=== PATIENT | female | born 1955 ===

== ENCOUNTER 2017-06-11 09:51 | Day surgery (SDC) | payer BC, MEDICARE ==
[2017-06-10 09:36] VITALS: BMI 29.9
[2017-06-11] MEDS ORDERED: HYDROmorphone 0.5 mg/0.5 ml ISec IVP PRN (12:14)
[2017-06-11] MEDS ORDERED: Lidocaine 2% Inj (20ml) ONE (12:29)
[2017-06-11] MEDS ORDERED: EPINEPHrine 1 mg/ml (1:1000) Inj ONE (12:29)
[2017-06-11] MEDS ORDERED: Lactated Ringer's 1,000 ML IV ONE (12:48)
[2017-06-11] MEDS ORDERED: Propofol 10 mg/ml Inj (20 ML) ONE (12:58)
[2017-06-11] MEDS ORDERED: Albuterol-Ipratrop 3 mg / 0.5 (3 ml) UD INH STA (13:21)
[2017-06-11] MEDS ORDERED: MethylPREDNISolone 40 mg Vial IVP STA (13:22)
[2017-06-11] MEDS ORDERED: Acetylcysteine 20% Inhal Soln (4ml) INH STA (13:22)
--- NOTE | 2017-06-11 13:27 | PCM.SURG1 ---
Surgeon's Initial Post Op Note - Surgeon's Notes Surgeon: Lissette Slate Trimmer: non Pre-Operative Diagnosis: lung fibrosis with breast cancer history Operative Findings: pt is coughing. inflammed bronchial tree. No mass Post-Operative Diagnosis: lung fibrosis Operation Performed: Bronch, BAL,washing and biopsy avoided Specimen/Specimens Removed: BAL, washing brushing Estimated Blood Loss: EBL {In ML}: 1 Date of Surgery/Procedure: 06/11/17 Time of Surgery/Procedure: 13:27
[2017-06-11] MEDS ORDERED: Lactated Ringer's 1,000 ML IV SCH (13:30)
[2017-06-11 15:13] VITALS: O2SAT 94
[2017-06-11 15:30] VITALS: TEMP 98
[2017-06-11 15:33] VITALS: BP 152/62; PULSE 96; RESP 18
--- NOTE | 2017-06-11 19:55 | RAD ---
HISTORY: ptx COMPARISON: 08/21/2016. FINDINGS: LUNGS: There are coarse interstitial markings in both lungs and haziness in both lower lobes. There is also bibasilar airspace disease. PLEURA: No significant pleural effusion identified, no pneumothorax apparent. CARDIOVASCULAR: Normal. OSSEOUS STRUCTURES: No significant abnormalities. VISUALIZED UPPER ABDOMEN: Normal. OTHER FINDINGS: None. IMPRESSION: No radiographic evidence for pneumothorax. Findings are most compatible with interstitial fibrosis. Bibasilar airspace disease could represent atelectasis however superimposed pneumonia cannot be excluded. Follow-up is advised.
--- NOTE | 2017-06-12 08:44 | RAD ---
INTRAOPERATIVE FLUOROSCOPY HISTORY: Bronchoscopy TECHNIQUE/FINDINGS: Fluoroscopic guidance was provided by Radiology department. Please see operative report for full details. Six images were provided. Total fluoroscopy time was 18.8 seconds. IMPRESSION: As above
--- NOTE | 2017-06-22 04:40 | OP ---
PROCEDURE DATE: PROCEDURE: Bronchoscopic evaluation, biopsy possibly. INDICATION: Lung fibrosis, history of breast cancer, suspecting metastatic lesions. CONSENT: Informed consent from the patient. DESCRIPTION OF PROCEDURE: The patient was brought to the same day surgery, and she was taken to the endoscopy suite. The patient was given conscious sedation. Bronchoscopy was introduced through the right nostril. Vocal cord visualized. Trachea and bronchial tree visualized. No intraluminal pathology noted. Both sides lung parenchyma visualized through the bronchoscopy, mostly BAL and brushing was corrected through the right lower lung garcia. The patient was having significant bleeding even with minimal touch. The patient was also having increasing coughing episodes. Biopsy was minimally done. Samples were collected, sent for pathology, microbiology. Clinically, the patient is stable. Oxygen rangel, the patient is stable. She will be monitored in the postanesthesia unit. If the x-ray is negative, the patient will be discharged home. Cyndi Mclaughlin MD
--- NOTE | 2017-06-22 04:41 | HP ---
CHIEF COMPLAINT: Shortness of breath. HISTORY OF PRESENT ILLNESS: This is a 61-year-old female with a history of breast cancer many years ago. The patient treated in the past, now having increasing episodes of coughing and also increasing wheezing. The patient was seen by me as an outpatient for chronic worsening cough. In the past, the patient was seen by multiple pulmonologists. Radiological evidence showing there was a significant lung fibrotic pattern noted. PAST MEDICAL HISTORY: Breast cancer. ALLERGIES: NO KNOWN DRUG ALLERGY. PERSONAL HISTORY: Nonsmoker, nonalcoholic, significant exposure to dust noted while she was working. Denies any major occupational disorder. PHYSICAL EXAMINATION: GENERAL: Clinically stable. LUNGS: Bilateral wheezing and rales noted. CARDIOPULMONARY: Regular heart sound. ABDOMEN: Nontender. EXTREMITIES: No pedal edema. LABORATORY DATA: Chest x-ray; bilateral infiltrative changes, chronic lung fibrotic changes noted. The patient also had a PET scan showing evidence of minimal uptake and also elevated tumor markers noted, suspected secondary in the lungs, so the patient agreed to have the bronchial biopsy. The patient is scheduled to have the branchial biopsy today. We will follow up the patient. After the bronchoscopy, the patient is stable. She will be discharged home. Cyndi Mclaughlin MD
== END 2017-06-11 15:40 | disposition home or self-care (01) ==
LOC: C.SDS 09:51
PROVIDERS: ATTEND Internal Medicine
DX: J84.112 Idiopathic pulmonary fibrosis (principal); C50.919 Malignant neoplasm of unspecified site of unspecified female breast
CPT/HCPCS: 31623; 71010; 87070; 87101; 87116; 87205; 87206; 88104; 88305; 94640; J2270; J2920; J7120

== ENCOUNTER 2017-09-14 12:16 | Observation (INO) | payer BC, MEDICARE ==
[2017-09-14 12:22] VITALS: BMI 29.2
--- NOTE | 2017-09-14 13:30 | C.PDOC ---
History Of Present Illness 62 year old female presents to the ED for evaluation of persistent shortness of breath which began 1 week ago. Patient is s/p discharge from [facility] for pneumonia. Patient has history of pulmonary fibrosis and has been compliant with antibiotics. Patient has been on home O2 4L 24/7. Reports positive dyspnea on exertion. Denies chest pain. Patient is currently asymptomatic "as long as she doesn't have to walk." Patient reports history of CHF, EDEMA. Denies fever. PERSIST SOB X 1 WEEK. S/P DC FROM [facility] FOR PNEUMONIA. HO PULM FIBROSIS. COMPLIANT W ABX. ON HOME O2 4L 24/7. +MITCHELL. NO CP. CURRENTLY ASYMPT " LONG SHE DOESNT HAVE TO WALK". NO HO CHF, EDEMA. NO FEVER EXAM NONTOXIC NARD HEENT NEG LUNGS B/L MID/BASILAR CRACKLES ?CHRONIC CV RRR NO EDEMA REMIANDER NEG Time Seen by Provider: 09/14/17 13:02 Chief Complaint (Nursing): Shortness Of Breath History Per: Patient History/Exam Limitations: no limitations Onset/Duration Of Symptoms: Persistent, Other (1 week) Current Symptoms Are (Timing): Better Exacerbating Factor(s): Exertion Current Respiratory Medications: See Home Med List Associated Symptoms: denies: Fever, Chest Pain Past Medical History Reviewed: Historical Data, Nursing Documentation, Vital Signs Vital Signs: Last Vital Signs Temp 99.1 F 09/14/17 12:35 Pulse 96 H 09/14/17 12:35 Resp 24 09/14/17 13:00 BP 122/69 09/14/17 12:35 Pulse Ox 97 09/14/17 13:55 - Medical History PMH: Arthritis (fingers), Asthma, Bronchitis, COPD, Depression, Osteoporosis, Pneumonia Denies: Parkinson's Disease Surgical History: Appendectomy, Cholecystectomy, Endoscopy Denies: Pacemaker - [facility] Procedures CLOSED ENDOSCOPIC BIOPSY OF LARGE INTESTINE (02/25/07) DPT ADMINISTRATION (11/13/13) ENDO EXCISION/DEST OF LESION OR TISSUE OF STOMACH (02/01/14) ENDOSC POLYPECTOMY OF LG INTEST (02/01/14) ESOPHAGOGASTRODUODENOSCOPY [EGD] W/CLOSED BIOPSY (10/11/14) INJECT/INFUSE NEC (02/28/15) INTRODUCE OF OTH THERAP SUBST INTO RESP TRACT, VIA OPENING (09/06/17) NEBULIZER THERAPY (08/11/13) Family History: States: Unknown Family Hx - Social History Hx Tobacco Use: No Hx Alcohol Use: No Hx Substance Use: No Review Of Systems Constitutional: Negative for: Fever Cardiovascular: Negative for: Chest Pain Respiratory: Positive for: Shortness of Breath, Other (dyspnea on exertion ) Physical Exam - Physical Exam Appears: Non-toxic, Other (no acute respiratory distress ) Head: Atraumatic, Normacephalic Eye(s): bilateral: Normal Inspection Ear(s): Bilateral: Normal Nose: Normal, No Discharge Oral Mucosa: Moist Throat: Normal, No Erythema, No Exudate Neck: Supple Chest: Symmetrical, No Deformity, No Tenderness Cardiovascular: Rhythm Regular, No Murmur Respiratory: Normal Breath Sounds, No Rales, No Rhonchi, No Wheezing Extremity: Normal ROM, Capillary Refill (less than 2 seconds ), No Other (edema ) Neurological/Psych: Oriented x3, Normal Speech, Normal Cognition Gait: Steady ED Course And Treatment - Laboratory Results Result Diagrams: 09/14/17 13:41 09/14/17 13:41 ECG: Interpreted By Me ECG Rhythm: R BBB ECG Interpretation: Normal, No Acute Changes Rate From EC O2 Sat by Pulse Oximetry: 97 (on RA) Pulse Ox Interpretation: Normal - Radiology CXR: Interpreted by Id CXR Interpretation: Yes: No Acute Disease, Other (PULM FIBROSIS) Progress Note: Bloodwork and CXR ordered and reviewed. Progress - Re-Evaluation Re-evaluation Note: 09/14/17 13:02 D/W PMD HO BREAST CA DISTANT. HO LUNG FIBROSIS. NO HO CHF. 09/14/17 14:42 D/W DR MCLAUGHLIN AWARE OF ER FINDINGS WILL ADMIT - Data Reviewed Data Reviewed: Lab, Diagnostic imaging, EKG, Old records Disposition Counseled Patient/Family Regarding: Studies Performed, Diagnosis - Disposition Disposition: HOSPITALIZED Disposition Time: 14:43 Condition: STABLE Forms: [facility] (Austrian) - POA Present On Arrival: None - Clinical Impression Clinical Impression: Pulmonary fibrosis, Dyspnea - Scribe Statement The provider has reviewed the documentation as recorded by the Scribe (Marti Awad) Provider Attestation: All medical record entries made by the Scribe were at my direction and personally dictated by me. I have reviewed the chart and agree that the record accurately reflects my personal performance of the history, physical exam, medical decision making, and the department course for this patient. I have also personally directed, reviewed, and agree with the discharge instructions and disposition. Decision To Admit - Pt Status Changed To: Hospital Disposition Of: Observation - . Bed Request Type: Regular Admitting Physician: Cyndi Mclaughlin Patient Diagnosis: Pulmonary fibrosis, Dyspnea
[2017-09-14 13:52] LABS: BASO % 0.2 % (0.0-2.0); EOS # 0.1 K/uL (0.0-0.7); EOS % 0.8 % (0.0-4.0); LYMPH # 1.2 K/uL (1.0-4.3); LYMPH % 8.8 % (20.0-40.0); MEAN CELL VOLUME 84.7 fL (81.0-99.0); MEAN CORPUSCULAR HEMOGLOBIN 27.9 pg (27.0-31.0); MEAN PLATELET VOLUME 7.3 fL (7.2-11.7); MONO # 1.2 K/uL (0.0-0.8); MONO % 9.1 % (0.0-10.0); NEUT # 10.9 K/uL (1.8-7.0); NEUT % 81.1 % (50.0-75.0); PLATELET COUNT 279 K/uL (130-400); RED CELL DISTRIBUTION WIDTH 15.1 % (11.5-14.5); WHITE BLOOD COUNT 13.5 K/uL (4.8-10.8)
[2017-09-14 14:04] LABS: BLOOD UREA NITROGEN 14 mg/dL (7-17); CALCIUM 8.2 mg/dl (8.6-10.4); GFR AFRICAN-AMERICAN > 60; GFR NON-AFRICAN AMERICAN > 60
[2017-09-14 14:12] LABS: B-TYPE NATRIURETIC PEPTIDE 266 pg/mL (0-900)
[2017-09-14 14:24] LABS: ANISOCYTOSIS SLIGHT; LYMPHOCYTE 7 % (20-40); MONOCYTE 12 % (0-10); NEUTROPHIL 81 % (50-75); PLATELET ESTIMATE NORMAL (NORMAL); TOTAL CELLS COUNTED 100
--- NOTE | 2017-09-14 15:51 | RAD ---
HISTORY: SOB HO PULM FIBROSIS S/P RECENT PNEUMONIA COMPARISON: 06/11/2017 chest x-ray and CT chest without contrast 11/25/2015 TECHNIQUE: Chest PA and lateral FINDINGS: LUNGS: Shallow lung volumes -as before. . Prominent inferolateral interstitial lung markings and left infrahilar coalescence compatible with CT referenced bronchiectasis. Abnormal interstitial lung markings are chronic finding in this patient surgical clips project over the left mid and lower thorax (prior CT shows these as extrathoracic in bordering the asymmetrical left pectoralis muscles ) and left upper abdomen PLEURA: No significant pleural effusion identified. No pneumothorax apparent. CARDIOVASCULAR: Grossly normal OSSEOUS STRUCTURES: Prominent thoracic spondylosis VISUALIZED UPPER ABDOMEN: Normal. OTHER FINDINGS: None. IMPRESSION: Shallow lung volumes, and coarse inferolateral chronically prominent interstitial lung markings -findings compatible with chronic interstitial lung disease. Pulmonary fibrosis not excluded. Current left infrahilar lung appearance compatible with prior CT suggestion of left infrahilar bronchiectasis here
[2017-09-14] MEDS ORDERED: Albuterol-Ipratrop 3 mg / 0.5 (3 ml) UD ONE (17:42)
[2017-09-14] MEDS ORDERED: MethylPREDNISolone 40 mg Vial IVP ONE (17:45)
--- NOTE | 2017-09-14 18:35 | CP.PCM.HP ---
Past Patient History - Infectious Disease Hx of Infectious Diseases: None - Tetanus Immunizations Tetanus Immunization: Unknown - Past Medical History & Family History Past Medical History?: Yes - Past Social History Smoking Status: Never Smoked - CARDIAC Hx Pacemaker: No - PULMONARY Hx Asthma: Yes Hx Bronchitis: Yes Hx Chronic Obstructive Pulmonary Disease (COPD): Yes Hx Pneumonia: Yes - NEUROLOGICAL Hx Parkinson's Disease: No - HEENT Hx HEENT Problems: Yes Hx Cataracts: Yes (BILAT IOL) Hx Deafness: Yes (BILATERAL EARS DECREASED HEARING) - HEMATOLOGICAL/ONCOLOGICAL Hx Blood Disorders: Yes Hx Blood Transfusions: Yes - MUSCULOSKELETAL/RHEUMATOLOGICAL Hx Arthritis: Yes (fingers) Hx Osteoporosis: Yes - GASTROINTESTINAL Hx Gastrointestinal Disorders: Yes Hx Gastroesophageal Reflux: Yes - PSYCHIATRIC Hx Depression: Yes Hx Substance Use: No - SURGICAL HISTORY Hx Appendectomy: Yes Hx Cholecystectomy: Yes - ANESTHESIA Hx Anesthesia Reactions: No Meds Allergies/Adverse Reactions: Allergies Allergy/AdvReac Type Severity Reaction Status Date / Time No Known Allergies Allergy Verified 09/14/17 12:21 Results - Vital Signs Recent Vital Signs: Last Vital Signs Temp 99.1 F 09/14/17 12:35 Pulse 96 H 09/14/17 12:35 Resp 24 09/14/17 13:00 BP 122/69 09/14/17 12:35 Pulse Ox 97 09/14/17 14:43 - Labs Result Diagrams: 09/14/17 13:41 09/14/17 13:41 Labs: Laboratory Results - last 24 hr 09/14/17 09/14/17 13:41 13:41 WBC 13.5 H RBC 5.00 Hgb 14.0 Hct 42.4 MCV 84.7 MCH 27.9 MCHC 33.0 RDW 15.1 H Plt Count 279 MPV 7.3 Neut % (Auto) 81.1 H Lymph % (Auto) 8.8 L [place] % (Auto) 9.1 Eos % (Auto) 0.8 Baso % (Auto) 0.2 Neut # 10.9 H Lymph # 1.2 [place] # 1.2 H Eos # 0.1 Baso # 0.0 Neutrophils % (Manual) 81 H Lymphocytes % (Manual) 7 L Monocytes % (Manual) 12 H Platelet Estimate Normal Anisocytosis (manual) Slight Sodium 132 Potassium 4.0 Chloride 93 L Carbon Dioxide 32 H Anion Gap 11 BUN 14 Creatinine 0.6 L Est GFR ( Amer) > 60 Est GFR (Non-Af Amer) > 60 Random Glucose 85 Calcium 8.2 L NT-Pro-B Natriuret Pep 266
[2017-09-14] MEDS ORDERED: MethylPREDNISolone 40 mg Vial ONE (18:44)
[2017-09-14] MEDS: Acetylcysteine 20% Inhal Soln (4ml) INH SCH (19:31)
[2017-09-14] MEDS: Azithromycin 500 MG in Sodium Chloride 0.9% 250 ML IVPB SCH (19:31)
[2017-09-14 20:33] VITALS: RESP 20
[2017-09-14] MEDS: Promethazine/Cod 6.25mg-10mg/5ml Syr UD PO SCH (22:05)
[2017-09-14] MEDS: MethylPREDNISolone 40 mg Vial IVP SCH (22:07)
[2017-09-15] MEDS: Albuterol-Ipratrop 3 mg / 0.5 (3 ml) UD INH SCH ×4 (01:20→20:27)
[2017-09-15] MEDS: Acetylcysteine 20% Inhal Soln (4ml) INH SCH ×4 (01:20→20:27)
[2017-09-15] MEDS: Promethazine/Cod 6.25mg-10mg/5ml Syr UD PO SCH ×6 (05:01→20:00)
[2017-09-15] MEDS: MethylPREDNISolone 40 mg Vial IVP SCH ×3 (05:03→22:05)
[2017-09-15] MEDS: Enoxaparin 40 mg Syringe SC SCH (10:13)
[2017-09-15] MEDS: LIPASE/PROTEASE/AMYLASE 4,200 U ECC PO SCH ×3 (10:14→17:35)
[2017-09-15] MEDS: Pantoprazole 40 mg EC Tab PO SCH (12:46)
--- NOTE | 2017-09-15 15:01 | CARD ---
APPROVED REPORT EKG Measurement Heart [id number] <Conclusion> Normal sinus rhythm Right bundle branch block Abnormal ECG
[2017-09-15] MEDS: Azithromycin 500 MG in Sodium Chloride 0.9% 250 ML IVPB SCH (19:00)
--- NOTE | 2017-09-15 19:42 | CP.PCM.PN ---
Subjective - Date & Time of Evaluation Date of Evaluation: 09/15/17 Time of Evaluation: 19:40 - Subjective Subjective: pt feels good less cough eating well less distress vitals stable no chest pain rales noted pt with h/o breast cancer 30yrs ago HTn lung fibrosis with radiation fibrosis continue steroids and nebs regular diet Objective - Vital Signs/Intake and Output Vital Signs (last 24 hours): Temp Pulse Resp BP Pulse Ox 98 F 82 20 112/64 98 09/15/17 15:00 09/15/17 15:00 09/15/17 15:00 09/15/17 15:00 09/15/17 15:00 Intake and Output: 09/15/17 09/16/17 18:59 06:59 Intake Total 240 Balance 240 - Medications Medications: Current Medications Acetylcysteine (Acetylcysteine 20%) 4 ml INH Q6H [facility] Last Admin: 09/15/17 13:38 Dose: Not Given Albuterol/Ipratropium (Duoneb 3 Mg/0.5 Mg (3 Ml) Ud) 3 ml INH RQ6 [facility] Last Admin: 09/15/17 13:38 Dose: 3 ml Alprazolam (Xanax) 0.25 mg PO HS PRN PRN Reason: Anxiety Stop: 09/21/17 17:27 Last Admin: 09/14/17 22:07 Dose: 0.25 mg Enoxaparin Sodium (Lovenox) 40 mg SC DAILY [facility] Last Admin: 09/15/17 10:13 Dose: 40 mg Azithromycin 500 mg/ Sodium (Chloride) 250 mls @ 167 mls/hr IVPB Q24H [facility] Last Admin: 09/14/17 19:31 Dose: 167 mls/hr Methylprednisolone (Solu-Medrol) 40 mg IVP Q8 [facility] Last Admin: 09/15/17 14:25 Dose: 40 mg Montelukast Sodium (Singulair) 10 mg PO HS [facility] Last Admin: 09/14/17 22:07 Dose: 10 mg Pantoprazole Sodium (Protonix Ec Tab) 40 mg PO DAILY [facility] Last Admin: 09/15/17 12:46 Dose: 40 mg Pneumococcal Polyvalent Vaccine (Pneumovax 23 Vaccine) 0.5 ml IM .ONCE ONE Stop: 09/17/17 10:01 Promethazine HCl/Codeine (Phenergan/Codeine Oral Syrup) 5 ml PO Q4 [facility] Last Admin: 09/15/17 16:35 Dose: 5 ml - Labs Labs: 09/14/17 13:41 09/14/17 13:41
[2017-09-16] MEDS: Promethazine/Cod 6.25mg-10mg/5ml Syr UD PO SCH ×5 (00:35→16:35)
[2017-09-16] MEDS: Acetylcysteine 20% Inhal Soln (4ml) INH SCH ×3 (01:03→07:29)
[2017-09-16] MEDS: Albuterol-Ipratrop 3 mg / 0.5 (3 ml) UD INH SCH ×2 (01:05→07:29)
[2017-09-16] MEDS: LIPASE/PROTEASE/AMYLASE 4,200 U ECC PO SCH ×3 (08:22→16:35)
[2017-09-16] MEDS: Pantoprazole 40 mg EC Tab PO SCH (10:55)
[2017-09-16] MEDS: Enoxaparin 40 mg Syringe SC SCH (10:55)
[2017-09-16] MEDS: MethylPREDNISolone 40 mg Vial IVP SCH (10:55)
--- NOTE | 2017-09-16 13:10 | CP.PCM.PN ---
Subjective - Date & Time of Evaluation Date of Evaluation: 09/16/17 Time of Evaluation: 13:04 - Subjective Subjective: PT SEEN AND EXAMINED TODAY, RESPIRATION EASY AND UNLABORED. NAD Objective - Vital Signs/Intake and Output Vital Signs (last 24 hours): Temp Pulse Resp BP Pulse Ox 97.7 F 84 20 110/73 98 09/16/17 08:02 09/16/17 08:02 09/16/17 08:02 09/16/17 08:02 09/16/17 08:02 Intake and Output: 09/16/17 09/16/17 06:59 18:59 Intake Total 890 Balance 890 - Medications Medications: Current Medications Acetylcysteine (Acetylcysteine 20%) 4 ml INH Q6H [facility] Last Admin: 09/16/17 07:29 Dose: Not Given Albuterol/Ipratropium (Duoneb 3 Mg/0.5 Mg (3 Ml) Ud) 3 ml INH RQ6 [facility] Last Admin: 09/16/17 07:29 Dose: Not Given Alprazolam (Xanax) 0.25 mg PO HS PRN PRN Reason: Anxiety Stop: 09/21/17 17:27 Last Admin: 09/14/17 22:07 Dose: 0.25 mg Enoxaparin Sodium (Lovenox) 40 mg SC DAILY [facility] Last Admin: 09/16/17 10:55 Dose: 40 mg Azithromycin 500 mg/ Sodium (Chloride) 250 mls @ 167 mls/hr IVPB Q24H [facility] Last Admin: 09/15/17 19:00 Dose: 167 mls/hr Methylprednisolone (Solu-Medrol) 40 mg IVP Q12 [facility] Last Admin: 09/16/17 10:55 Dose: 40 mg Montelukast Sodium (Singulair) 10 mg PO HS [facility] Last Admin: 09/15/17 22:05 Dose: 10 mg Pantoprazole Sodium (Protonix Ec Tab) 40 mg PO DAILY [facility] Last Admin: 09/16/17 10:55 Dose: 40 mg Pneumococcal Polyvalent Vaccine (Pneumovax 23 Vaccine) 0.5 ml IM .ONCE ONE Stop: 09/17/17 10:01 Promethazine HCl/Codeine (Phenergan/Codeine Oral Syrup) 5 ml PO Q4 [facility] Last Admin: 09/16/17 12:00 Dose: 5 ml - Labs Labs: 09/14/17 13:41 09/14/17 13:41 Assessment and Plan - Assessment and Plan (Free Text) Plan: 62 Y/O FEMALE WITH OMHX PULMONARY FIBROSIS (COMPLIANT WITH HER ABX) ADMITTED FOR DYSPNEA UPON EXERTION, RECENTLY DISCHARGE FROM [place] FOR PNEUMONIA CXRAY- NO ACUTE FINDINGS, PUL. FIBROSIS PT DENIES ANY CHEST PAIN, PALPITATION, SOB AT PRESENT, NAD. CLEARED FOR DISCHARGE TODAY BY DR. CÁRDENAS, CONTINUE HOME MEDS, PREDNISONE 20 MG PO DIALY X5 D, 10 MG PO X5 D, CONTINUE DOXY PRESCRIBED BY PMD HOME PT AND [facility], ROLLING WALKER ARRANGED SAFE FOR OUTPT F/U
[2017-09-16 15:59] VITALS: BP 124/71; PULSE 81; TEMP 98.3; O2SAT 97
--- NOTE | 2017-09-16 18:50 | CP.PCM.DIS ---
Provider - Provider Date of Admission: 09/14/17 14:43 Attending physician: Cyndi Mclaughlin MD Hospital Course - Lab Results Lab Results: Most Recent Lab Values WBC 13.5 K/uL (4.8-10.8) H 09/14/17 13:41 RBC 5.00 Mil/uL (3.80-5.20) 09/14/17 13:41 Hgb 14.0 g/dL (11.0-16.0) 09/14/17 13:41 Hct 42.4 % (34.0-47.0) 09/14/17 13:41 MCV 84.7 fL (81.0-99.0) 09/14/17 13:41 MCH 27.9 pg (27.0-31.0) 09/14/17 13:41 MCHC 33.0 g/dL (33.0-37.0) 09/14/17 13:41 RDW 15.1 % (11.5-14.5) H 09/14/17 13:41 Plt Count 279 K/uL (130-400) 09/14/17 13:41 MPV 7.3 fL (7.2-11.7) 09/14/17 13:41 Neut % (Auto) 81.1 % (50.0-75.0) H 09/14/17 13:41 Lymph % (Auto) 8.8 % (20.0-40.0) L 09/14/17 13:41 [place] % (Auto) 9.1 % (0.0-10.0) 09/14/17 13:41 Eos % (Auto) 0.8 % (0.0-4.0) 09/14/17 13:41 Baso % (Auto) 0.2 % (0.0-2.0) 09/14/17 13:41 Neut # 10.9 K/uL (1.8-7.0) H 09/14/17 13:41 Lymph # 1.2 K/uL (1.0-4.3) 09/14/17 13:41 [place] # 1.2 K/uL (0.0-0.8) H 09/14/17 13:41 Eos # 0.1 K/uL (0.0-0.7) 09/14/17 13:41 Baso # 0.0 K/uL (0.0-0.2) 09/14/17 13:41 Neutrophils % (Manual) 81 % (50-75) H 09/14/17 13:41 Lymphocytes % (Manual) 7 % (20-40) L 09/14/17 13:41 Monocytes % (Manual) 12 % (0-10) H 09/14/17 13:41 Platelet Estimate Normal (NORMAL) 09/14/17 13:41 Anisocytosis (manual) Slight 09/14/17 13:41 Sodium 132 mmol/L (132-148) 09/14/17 13:41 Potassium 4.0 mmol/L (3.6-5.2) 09/14/17 13:41 Chloride 93 mmol/L (98-107) L 09/14/17 13:41 Carbon Dioxide 32 mmol/L (22-30) H 09/14/17 13:41 Anion Gap 11 (10-20) 09/14/17 13:41 BUN 14 mg/dL (7-17) 09/14/17 13:41 Creatinine 0.6 mg/dL (0.7-1.2) L 09/14/17 13:41 Est GFR ( Amer) > 60 09/14/17 13:41 Est GFR (Non-Af Amer) > 60 09/14/17 13:41 Random Glucose 85 mg/dL (65-105) 09/14/17 13:41 Calcium 8.2 mg/dl (8.6-10.4) L 09/14/17 13:41 NT-Pro-B Natriuret Pep 266 pg/mL (0-900) 09/14/17 13:41 Discharge Plan - Discharge Medications Prescriptions: Prednisone [Deltasone] 20 mg PO DAILY 10 Days tablet - Follow Up Plan Condition: STABLE Disposition: HOME/ ROUTINE Instructions: Prednisone (By mouth), Pulmonary Fibrosis (DC), Dyspnea (GEN) Additional Instructions: continue home meds, Prednisone 20 mg PO daily x5 days, Prednisone 10 mg PO daily x5 days, continue Prednisone 5 mg PO daily that you have at home prescribed by your PMD. f/u with Dr. Almaguer in the office in 2-3 days, we have made an arrangement for Home PT and visiting nurse, rolling walker and wheelchair for you. return to ER for any worsening s/s. Referrals: Cyndi Mclaughlin MD [Staff Provider] -
[2017-09-17] MEDS ORDERED: Influenza Vaccine 60 mcg/0.5 mL SYR (4YR UP) IM ONE (10:00)
[2017-09-17] MEDS ORDERED: Pneumococcal 23-Valent Vaccine IM ONE (10:00)
== END 2017-09-16 19:30 | disposition home or self-care (01) ==
LOC: C.ER 12:16 → C.9E 14:43 → C.3T 17:52
PROVIDERS: ADMIT Internal Medicine; ATTEND Internal Medicine
DX: J84.10 Pulmonary fibrosis, unspecified (principal); J44.9 Chronic obstructive pulmonary disease, unspecified; I10 Essential (primary) hypertension; H91.93 Unspecified hearing loss, bilateral; K21.9 Gastro-esophageal reflux disease without esophagitis; M81.0 Age-related osteoporosis without current pathological fracture; Z85.3 Personal history of malignant neoplasm of breast; Z87.01 Personal history of pneumonia (recurrent); Z90.49 Acquired absence of other specified parts of digestive tract; Z99.81 Dependence on supplemental oxygen
CPT/HCPCS: 71046; 80048; 83880; 85025; 93005; 94640; 96374; 97116; 97162; 99285; G0378; G8978; G8979; J0456; J1650; J2920

== ENCOUNTER 2017-10-25 11:35 | Inpatient (IN) | payer BC, MEDICARE ==
[2017-10-25 11:35] VITALS: BMI 30.5
[2017-10-25] MEDS ORDERED: Albuterol-Ipratrop 3 mg / 0.5 (3 ml) UD IH STA (12:14)
[2017-10-25] MEDS ORDERED: Albuterol-Ipratrop 3 mg / 0.5 (3 ml) UD ONE (12:38)
[2017-10-25 12:41] LABS: BASO # 0.1 K/uL (0.0-0.2); EOS # 0.6 K/uL (0.0-0.7); HEMOGLOBIN 12.9 g/dL (11.0-16.0); LYMPH # 3.2 K/uL (1.0-4.3); MEAN CELL VOLUME 85.1 fL (81.0-99.0); MEAN CORPUSCULAR HEMOGLOBIN 29.1 pg (27.0-31.0); MEAN CORPUSCULAR HGB CONC 34.2 g/dL (33.0-37.0); MEAN PLATELET VOLUME 7.2 fL (7.2-11.7); MONO # 0.7 K/uL (0.0-0.8); MONO % 7.3 % (0.0-10.0); NEUT # 5.5 K/uL (1.8-7.0); NEUT % 53.7 % (50.0-75.0); RBC 4.42 Mil/uL (3.80-5.20); RED CELL DISTRIBUTION WIDTH 14.9 % (11.5-14.5); WHITE BLOOD COUNT 10.2 K/uL (4.8-10.8)
--- NOTE | 2017-10-25 12:48 | C.PDOC ---
History Of Present Illness 62yo female, with a history of pulmonary fibrosis, sent to ER by Dr. Mclaughlin due to complaints of shortness of breath. Patient has had worsening shortness of breath for the past week and is on O2 at home. She has no other medical complaints. Chief Complaint (Nursing): Shortness Of Breath History Per: Patient History/Exam Limitations: no limitations Onset/Duration Of Symptoms: Days Current Symptoms Are (Timing): Still Present Past Medical History Reviewed: Historical Data, Nursing Documentation, Vital Signs Vital Signs: Last Vital Signs Temp 98 F 10/25/17 11:51 Pulse 99 H 10/25/17 14:30 Resp 30 H 10/25/17 14:30 BP 133/65 10/25/17 14:30 Pulse Ox 97 10/25/17 14:30 - Medical History PMH: Arthritis, Asthma, Bronchitis, CHF, COPD (bronchiectasis; pulmo fibrosis), Depression, Gall Bladder Disease (choleycstectomy), Osteoporosis, Pneumonia Denies: Parkinson's Disease, Chronic Kidney Disease Surgical History: Appendectomy, Cholecystectomy, Endoscopy Denies: Pacemaker - [facility] Procedures CLOSED ENDOSCOPIC BIOPSY OF LARGE INTESTINE (02/25/07) DPT ADMINISTRATION (11/13/13) ENDO EXCISION/DEST OF LESION OR TISSUE OF STOMACH (02/01/14) ENDOSC POLYPECTOMY OF LG INTEST (02/01/14) ESOPHAGOGASTRODUODENOSCOPY [EGD] W/CLOSED BIOPSY (10/11/14) INJECT/INFUSE NEC (02/28/15) INTRODUCE OF OTH THERAP SUBST INTO RESP TRACT, VIA OPENING (09/06/17) NEBULIZER THERAPY (08/11/13) Family History: States: Unknown Family Hx - Social History Hx Tobacco Use: No Hx Alcohol Use: No Hx Substance Use: No Review Of Systems Except As Marked, All Systems Reviewed And Found Negative. Respiratory: Positive for: Shortness of Breath Physical Exam - Physical Exam Appears: Non-toxic Skin: Normal Color Head: Normacephalic Eye(s): bilateral: Normal Inspection Oral Mucosa: Moist Neck: Supple Cardiovascular: Rhythm Regular Respiratory: Wheezing, Other (patient making huffing sounds in ER) Gastrointestinal/Abdominal: Normal Exam, Soft, No Tenderness Extremity: Normal ROM, No Pedal Edema Neurological/Psych: Oriented x3, Normal Speech ED Course And Treatment - Laboratory Results Result Diagrams: 10/25/17 12:33 10/25/17 12:33 O2 Sat by Pulse Oximetry: 90 (on 3L O2) - Radiology CXR: Read By Radiologist Critical Care Time - Critical Care Note Total Time (in mins): 35 Documented critical care: time excludes all time spent performing seperately billable procedures. Medical Decision Making Medical Decision Making: Impression: Shortness of breath x 1 week Plan: -- CXR -- Duoneb 3ml INH -- Prednisone 125 mg IVP -- BIPAP CXR Report: Accession No. : [id number] Patient Name / ID : CHERYL ROGERS / [id number] Exam Date : 10/25/2017 12:25:17 ( Approved ) Study Comment : Sex / Age : F / 62Y Creator : Yvrose Brizuela MD Dictator : Yvrose Brizuela MD [employer] Manager : Supervisor [employer] : Yvrose Brizuela MD Approver2 : Report Date : 10/25/2017 13:27:04 My Comment : HISTORY: SOB COMPARISON: Chest x-ray performed 09/14/17 TECHNIQUE: Chest, one view. FINDINGS: Examination limited by habitus and hypoinflation. LUNGS: Moderate diffuse interstitial prominence may reflect infection or edema, possibly superimposed on chronic interstitial changes. Bibasilar atelectasis/ infiltrates. Please note that chest x-ray has limited sensitivity for the detection of pulmonary masses. PLEURA: Possible tiny bilateral pleural effusions. No definite pneumothorax . CARDIOVASCULAR: Heart size appears top normal. OSSEOUS STRUCTURES: Degenerative changes. VISUALIZED UPPER ABDOMEN: Unremarkable. OTHER FINDINGS: None. IMPRESSION: Moderate diffuse interstitial prominence may reflect infection or edema, possibly superimposed on chronic interstitial changes. Pulmonary fibrosis not excluded. Bibasilar atelectasis/infiltrates. Possible tiny bilateral pleural effusions. Case discussed with Dr. Mclaughlin, patient to be admitted to Telemetry. Disposition - Disposition Disposition: HOSPITALIZED Disposition Time: 14:06 Condition: FAIR Forms: [facility] (Citizen Of [place]) - Clinical Impression Clinical Impression: Dyspnea, Pulmonary fibrosis, Hypoxia - PA / ELECTROMECHANICAL EQUIPMENT TESTER / Resident Statement MD/DO has reviewed & agrees with the documentation as recorded. - Scribe Statement The provider has reviewed the documentation as recorded by the Scribe (Kathryn Gonzalez) Provider Attestation: All medical record entries made by the Scribe were at my direction and personally dictated by me. I have reviewed the chart and agree that the record accurately reflects my personal performance of the history, physical exam, medical decision making, and the department course for this patient. I have also personally directed, reviewed, and agree with the discharge instructions and disposition. Decision To Admit - Pt Status Changed To: Hospital Disposition Of: Observation - . Bed Request Type: Telemetry Admitting Physician: Cyndi Mclaughlin Patient Diagnosis: Dyspnea, Pulmonary fibrosis, Hypoxia
[2017-10-25 12:54] LABS: INR 1.1; PROTHROMBIN TIME 12.2 SECONDS (9.7-12.2)
[2017-10-25 12:57] LABS: ALB/GLOB RATIO 0.8 (1.0-2.1); ALBUMIN 3.6 g/dL (3.5-5.0); ALT/SGPT 21 U/L (9-52); AST/SGOT 34 U/L (14-36); BLOOD UREA NITROGEN 6 mg/dL (7-17); CALCIUM 9.4 mg/dl (8.6-10.4); GFR AFRICAN-AMERICAN > 60; GFR NON-AFRICAN AMERICAN > 60
[2017-10-25 13:06] LABS: B-TYPE NATRIURETIC PEPTIDE 345 pg/mL (0-900)
--- NOTE | 2017-10-25 13:28 | RAD ---
HISTORY: SOB COMPARISON: Chest x-ray performed 09/14/17 TECHNIQUE: Chest, one view. FINDINGS: Examination limited by habitus and hypoinflation. LUNGS: Moderate diffuse interstitial prominence may reflect infection or edema, possibly superimposed on chronic interstitial changes. Bibasilar atelectasis/infiltrates. Please note that chest x-ray has limited sensitivity for the detection of pulmonary masses. PLEURA: Possible tiny bilateral pleural effusions. No definite pneumothorax . CARDIOVASCULAR: Heart size appears top normal. OSSEOUS STRUCTURES: Degenerative changes. VISUALIZED UPPER ABDOMEN: Unremarkable. OTHER FINDINGS: None. IMPRESSION: Moderate diffuse interstitial prominence may reflect infection or edema, possibly superimposed on chronic interstitial changes. Pulmonary fibrosis not excluded. Bibasilar atelectasis/infiltrates. Possible tiny bilateral pleural effusions.
--- NOTE | 2017-10-25 16:13 | CP.PCM.HP ---
History of Present Illness - History of Present Illness History of Present Illness: chief complaint: Shortness of breath History present illness: 62-year-old female with history of breast cancer, status post mastectomy in 1985 , and the radiation to the left side and the being followed up by oncologist regularly. 8 months ago. PET/CT was evaluated and nonspecific. Patient is currently complaining of increasing cough symptoms for almost 5 years , gradually getting worse. Mostly, the cough is dry, occasional wheezing noted. Cough is on and off. In the last a few months, at least to 3 months the patient is going to the emergency room more often. Patient is getting increasingly SOB, and also she started using the oxygen more often than before. Currently patient is using 3 L at home. But in spite of that her oxygen saturation is on the low side. Patient also went to see transplant center at the [facility], is scheduled to have a multiple workup. But given the history of breast cancer, records has to be ruled out. I also spoke to the oncologist to. Recent PET scan in August 2017 reviewed Improvement in the uptake noted, but worsening bilateral diffuse infiltrative changes, fibrotic changes noted. Since one month oxygenation is worsening, increasing cough noted, tachypnea noted. Weight as noted. Patient is also feeling somewhat bad, not improving The cough is getting worse, especially with his strong odor, also changing temperature whether, and also soco and smoky environment. At nighttime cough is also getting worse sometimes. S She has some pain along with the cough especially in the epigastric area. She has a history of recurrent diarrhea in the past, especially after eating meats. Associate with the some abdominal pain. Past medical history: Breast cancer history, and history of asthma Surgical history: , hip replacement, mastectomy 1985, status post irradiation. Family history: Father had a history of bone cancer. Mother with a lung cancer and emphysema. Siblings, many of them. History of dementia in the family. Social history: Denies any alcohol. Secondhand smoking noted. Drinks coffee daily. 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 Current medications: Singular, Ventolin, albuterol, Pulmicort, B12, will be Evista, Review of systems: Patient is currently having no headache, but cough and running nose, and associate with the dryness and wheezing. No sinusitis. Chest pain on and off Denies any GI symptoms. No leg swelling. On examination: HEENT PERRLA, neck supple No thyromegaly was noted and no cervical adenopathy noted Chest bilateral rales volcro-like ronchi noted CVS regular heart sound, no murmur Abdomen soft and no organomegaly Extremities no pedal edema, no leg swelling, pedal pulses are good. 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 Patient's labs reviewed Nonspecific. Elevated WBC secondary to possibly corticosteroid. Assessment and recommendation: 61-year-old female with history of breast cancer, stable. History of radiation. Patient had a significant exposure to organic chemicals in the past. Patient now having worsening cough. Gradually worsening for 5 years, more than. Occupational exposure likely, and got worse, and by possibly radiation. Patient possibly has a worsening lung fibrosis under oxygen dependent. Underlying metastatic lung cannot be ruled out. We will get the tumor markers. We'll get the oncological discussion, from the hospital. We'll continue the BiPAP, oxygen supplementation, a nasal corticosteroid, intravenous on a Medrol. DVT prophylaxis and will follow the patient Present on Admission - Present on Admission Any Indicators Present on Admission: No History of DVT/PE: No History of Uncontrolled Diabetes: No Urinary Catheter: No Decubitus Ulcer Present: No Past Patient History - Infectious Disease Hx of Infectious Diseases: None - Tetanus Immunizations Tetanus Immunization: Unknown - Past Medical History & Family History Past Medical History?: Yes - Past Social History Smoking Status: Never Smoked - CARDIAC Hx Congestive Heart Failure: Yes Hx Pacemaker: No - PULMONARY Hx Asthma: Yes Hx Bronchitis: Yes Hx Chronic Obstructive Pulmonary Disease (COPD): Yes (bronchiectasis; pulmo fibrosis) Hx Pneumonia: Yes - NEUROLOGICAL Hx Parkinson's Disease: No - HEENT Hx HEENT Problems: Yes Hx Cataracts: Yes (BILAT IOL) Hx Deafness: Yes (BILATERAL EARS DECREASED HEARING) Hx Glaucoma: No - RENAL Hx Chronic Kidney Disease: No - ENDOCRINE/METABOLIC Hx Endocrine Disorders: No - HEMATOLOGICAL/ONCOLOGICAL Hx Blood Disorders: Yes Hx Cancer: Yes (BREAST) - INTEGUMENTARY Hx Dermatological Problems: Yes Other/Comment: spider veins to left inner lateral side of leg. - MUSCULOSKELETAL/RHEUMATOLOGICAL Hx Arthritis: Yes Hx Osteoporosis: Yes - GASTROINTESTINAL Hx Gall Bladder Disease: Yes (choleycstectomy) - GENITOURINARY/GYNECOLOGICAL Hx Genitourinary Disorders: No - PSYCHIATRIC Hx Depression: Yes Hx Substance Use: No - SURGICAL HISTORY Hx Appendectomy: Yes Hx Cholecystectomy: Yes - ANESTHESIA Hx Anesthesia Reactions: No Meds Allergies/Adverse Reactions: Allergies Allergy/AdvReac Type Severity Reaction Status Date / Time No Known Allergies Allergy Verified 10/25/17 11:50 Results - Vital Signs Recent Vital Signs: Last Vital Signs Temp 98 F 10/25/17 11:51 Pulse 99 H 10/25/17 14:30 Resp 30 H 10/25/17 14:30 BP 133/65 10/25/17 14:30 Pulse Ox 90 L 10/25/17 15:06 - Labs Result Diagrams: 10/25/17 12:33 10/25/17 12:33 Labs: Laboratory Results - last 24 hr 10/25/17 10/25/17 10/25/17 12:33 12:33 12:33 WBC 10.2 RBC 4.42 Hgb 12.9 Hct 37.6 MCV 85.1 MCH 29.1 MCHC 34.2 RDW 14.9 H Plt Count 330 MPV 7.2 Neut % (Auto) 53.7 Lymph % (Auto) 32.0 [place] % (Auto) 7.3 Eos % (Auto) 6.0 H Baso % (Auto) 1.0 Neut # (Auto) 5.5 Lymph # (Auto) 3.2 [place] # (Auto) 0.7 Eos # (Auto) 0.6 Baso # (Auto) 0.1 PT 12.2 INR 1.1 APTT 28 Sodium 143 Potassium 3.7 Chloride 98 Carbon Dioxide 38 H Anion Gap 11 BUN 6 L Creatinine 0.6 L Est GFR ( Amer) > 60 Est GFR (Non-Af Amer) > 60 Random Glucose 103 Calcium 9.4 Total Bilirubin 0.3 AST 34 ALT 21 Alkaline Phosphatase 78 Troponin I < 0.0120 NT-Pro-B Natriuret Pep 345 Total Protein 8.2 Albumin 3.6 Globulin 4.6 H Albumin/Globulin Ratio 0.8 L
[2017-10-25] MEDS ORDERED: MethylPREDNISolone 40 mg Vial ONE (18:03)
[2017-10-25] MEDS: LIPASE/PROTEASE/AMYLASE 4,200 U ECC PO SCH (18:49)
[2017-10-25] MEDS: MethylPREDNISolone 40 mg Vial IVP SCH (18:50)
[2017-10-25] MEDS: Promethazine DM 6.25 mg-15 mg/5 ml Syrup PO SCH (18:50)
[2017-10-25] MEDS: Albuterol-Ipratrop 3 mg / 0.5 (3 ml) UD INH SCH (21:11)
[2017-10-25] MEDS: Budesonide 0.5 mg/2 ml Inhal Susp UD INH SCH (21:11)
[2017-10-26] MEDS: Promethazine DM 6.25 mg-15 mg/5 ml Syrup PO SCH ×5 (00:45→23:45)
[2017-10-26] MEDS ORDERED: Albuterol-Ipratrop 3 mg / 0.5 (3 ml) UD ONE (01:43)
[2017-10-26] MEDS: Albuterol-Ipratrop 3 mg / 0.5 (3 ml) UD INH SCH ×3 (01:48→20:50)
[2017-10-26] MEDS: LIPASE/PROTEASE/AMYLASE 4,200 U ECC PO SCH ×3 (10:55→17:17)
[2017-10-26] MEDS: MethylPREDNISolone 40 mg Vial IVP SCH ×3 (10:55→17:18)
[2017-10-26] MEDS: Pantoprazole 40 mg EC Tab PO SCH (10:56)
--- NOTE | 2017-10-26 12:30 | CARD ---
APPROVED REPORT EKG Measurement Heart [id number] <Conclusion> Sinus tachycardia Right bundle branch block Inferior infarct, age undetermined Abnormal ECG
[2017-10-26] MEDS: ESBRIET 267 MG PO SCH (17:18)
--- NOTE | 2017-10-26 21:37 | CP.PCM.PN ---
Subjective - Date & Time of Evaluation Date of Evaluation: 10/26/17 Time of Evaluation: 21:36 - Subjective Subjective: Patient's vital signs somewhat stable. Patient is benefiting from BiPAP. She is less dyspneic, and she is also having less tachycardic and tachypneic with BiPAP. Report that the patient is having increasing symptoms of dizziness shortness of breath and palpitation without BiPAP. Also hypoxia noted. Cough. Chest tightness on and off noted. Families at bedside On examination: Minimal expiratory wheezing and rales and Velcro rales noted regular heart sounds noted Nontender abdomen No pedal edema Assessment and recommendation: 62-year-old female with a history of remote history of breast cancer. Patient is currently having interstitial lung changes. Chronic respiratory failure, currently needing BiPAP. Patient will benefit by having BiPAP. Currently using BiPAP at a setting of 10/5 with 40% FiO2. Patient is a chronic respiratory insufficiency secondary to lung fibrosis. Since good candidate for portable ventilator. Will try to arrange. I also spoke to the transplant team at [facility], patient will need lung biopsy , to rule out any malignancy in the lungs. I spoke with interventional radiologist at the hospital, is willing to do the biopsy. Patient can be transferred to the hospital for treatment. I explained to the patient, patient's family, undoubtedly about the high risk of pneumothorax. Family is understanding. We will follow the patient. We'll try to arrange if possible. Objective - Vital Signs/Intake and Output Vital Signs (last 24 hours): Temp Pulse Resp BP Pulse Ox 98.1 F 58 L 20 172/91 H 97 10/26/17 15:18 10/26/17 20:50 10/26/17 15:18 10/26/17 15:18 10/26/17 16:00 - Medications Medications: Current Medications Albuterol/Ipratropium (Duoneb 3 Mg/0.5 Mg (3 Ml) Ud) 3 ml INH RQ6 [facility] Last Admin: 10/26/17 20:50 Dose: 3 ml Budesonide (Pulmicort Respules) 0.5 mg INH RQ12 [facility] Last Admin: 10/25/17 21:11 Dose: 0.5 mg Famotidine (Pepcid) 20 mg PO DAILY [facility] Last Admin: 10/26/17 10:56 Dose: 20 mg Gabapentin (Neurontin) 300 mg PO BID [facility] Last Admin: 10/26/17 17:18 Dose: 300 mg Heparin Sodium (Porcine) (Heparin) 5,000 units SC Q8 [facility] Last Admin: 10/26/17 14:38 Dose: 5,000 units Home Med (Patient's Own Medication) 3 tab PO TIDCC [facility] Last Admin: 10/26/17 17:18 Dose: 3 tab Methylprednisolone (Solu-Medrol) 20 mg IVP TID [facility] Stop: 10/28/17 18:01 Last Admin: 10/26/17 17:18 Dose: 20 mg Montelukast Sodium (Singulair) 10 mg PO DAILY [facility] Last Admin: 10/26/17 10:56 Dose: 10 mg Pantoprazole Sodium (Protonix Ec Tab) 40 mg PO DAILY [facility] Last Admin: 10/26/17 10:56 Dose: 40 mg Promethazine HCl/Dextromethorphan (Phenergan Dm Syrup) 5 ml PO Q6 [facility] Last Admin: 10/26/17 17:17 Dose: 5 ml Raloxifene HCl (Evista) 60 mg PO DAILY [facility] Last Admin: 10/26/17 10:56 Dose: 60 mg Vitamin B Complex/Folic Acid (Berroca) 1 tab PO DAILY [facility] Last Admin: 10/26/17 10:55 Dose: 1 tab - Labs Labs: 10/25/17 12:33 10/25/17 12:33 PT 12.2 SECONDS (9.7-12.2) 10/25/17 12:33 INR 1.1 10/25/17 12:33 APTT 28 SECONDS (21-34) 10/25/17 12:33
[2017-10-27] MEDS: Albuterol-Ipratrop 3 mg / 0.5 (3 ml) UD INH SCH ×4 (02:31→20:07)
[2017-10-27] MEDS: Promethazine DM 6.25 mg-15 mg/5 ml Syrup PO SCH ×3 (05:54→17:45)
[2017-10-27] MEDS: Budesonide 0.5 mg/2 ml Inhal Susp UD INH SCH ×2 (07:30→20:07)
[2017-10-27] MEDS: ESBRIET 267 MG PO SCH ×3 (08:14→21:32)
[2017-10-27] MEDS: LIPASE/PROTEASE/AMYLASE 4,200 U ECC PO SCH ×3 (09:27→17:43)
[2017-10-27] MEDS: Pantoprazole 40 mg EC Tab PO SCH (09:27)
[2017-10-27] MEDS: MethylPREDNISolone 40 mg Vial IVP SCH ×3 (09:27→17:46)
--- NOTE | 2017-10-27 23:55 | CP.PCM.PN ---
Subjective - Date & Time of Evaluation Date of Evaluation: 10/27/17 Time of Evaluation: 23:53 - Subjective Subjective: Patient is currently sleeping. On BiPAP. Comfortable. Saturation is better. But the patient is off BiPAP, having difficulty in breathing. I spoke to the patient's it has been this morning Vital signs reviewed No neck vein distention noted Bilateral rales noted CVS regular heart sound, no murmur noted Abdomen soft, nontender. 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 Worsening. On BiPAP ventilator. Patient is currently dependent. Having difficulty in taking the weaning off the BiPAP. Patient will benefit to having the respirator, portable ventilator. We'll arrange it, and she can be transferred after that or discharged home after that. Objective - Vital Signs/Intake and Output Vital Signs (last 24 hours): Temp Pulse Resp BP Pulse Ox 98 F 90 30 H 116/73 99 10/27/17 15:41 10/27/17 23:42 10/27/17 17:19 10/27/17 15:41 10/27/17 15:41 - Medications Medications: Current Medications Albuterol/Ipratropium (Duoneb 3 Mg/0.5 Mg (3 Ml) Ud) 3 ml INH RQ6 [facility] Last Admin: 10/27/17 20:07 Dose: 3 ml Budesonide (Pulmicort Respules) 0.5 mg INH RQ12 [facility] Last Admin: 10/27/17 20:07 Dose: 0.5 mg Famotidine (Pepcid) 20 mg PO DAILY [facility] Last Admin: 10/27/17 09:27 Dose: 20 mg Gabapentin (Neurontin) 300 mg PO BID [facility] Last Admin: 10/27/17 17:43 Dose: 300 mg Heparin Sodium (Porcine) (Heparin) 5,000 units SC Q8 [facility] Last Admin: 10/27/17 21:31 Dose: 5,000 units Home Med (Patient's Own Medication) 3 tab PO TIDCC [facility] Last Admin: 10/27/17 21:32 Dose: 3 tab Methylprednisolone (Solu-Medrol) 20 mg IVP TID [facility] Stop: 10/28/17 18:01 Last Admin: 10/27/17 17:46 Dose: 20 mg Montelukast Sodium (Singulair) 10 mg PO DAILY [facility] Last Admin: 10/27/17 09:27 Dose: 10 mg Pantoprazole Sodium (Protonix Ec Tab) 40 mg PO DAILY [facility] Last Admin: 10/27/17 09:27 Dose: 40 mg Promethazine HCl/Dextromethorphan (Phenergan Dm Syrup) 5 ml PO Q6 [facility] Last Admin: 10/27/17 17:45 Dose: 5 ml Raloxifene HCl (Evista) 60 mg PO DAILY [facility] Last Admin: 10/27/17 09:27 Dose: 60 mg Vitamin B Complex/Folic Acid (Berroca) 1 tab PO DAILY [facility] Last Admin: 10/27/17 09:27 Dose: 1 tab - Labs Labs: 10/25/17 12:33 10/25/17 12:33 PT 12.2 SECONDS (9.7-12.2) 10/25/17 12:33 INR 1.1 10/25/17 12:33 APTT 28 SECONDS (21-34) 10/25/17 12:33
[2017-10-28] MEDS: Promethazine DM 6.25 mg-15 mg/5 ml Syrup PO SCH ×5 (01:00→17:36)
[2017-10-28] MEDS: Albuterol-Ipratrop 3 mg / 0.5 (3 ml) UD INH SCH ×4 (01:20→19:20)
[2017-10-28] MEDS: ESBRIET 267 MG PO SCH ×3 (08:05→17:35)
[2017-10-28] MEDS: MethylPREDNISolone 40 mg Vial IVP SCH ×4 (09:31→21:30)
[2017-10-28] MEDS: Pantoprazole 40 mg EC Tab PO SCH (09:32)
[2017-10-28] MEDS: LIPASE/PROTEASE/AMYLASE 4,200 U ECC PO SCH ×3 (09:33→17:36)
[2017-10-28 15:57] LABS: ARTERIAL BLOOD GAS HCO3 29.7 mmol/L (21-28); ARTERIAL BLOOD GAS HEMOGLOBIN 12.7 g/dL (11.7-17.4); ARTERIAL BLOOD GAS O2 SAT 99.8 % (95-98); ARTERIAL BLOOD GAS PCO2 46 mm/Hg (35-45); ARTERIAL BLOOD GAS PH 7.44 (7.35-7.45); ARTERIAL BLOOD GAS PO2 136 mm/Hg (80-100); ARTERIAL BLOOD GAS TCO2 32.6 mmol/L (22-28)
--- NOTE | 2017-10-28 21:12 | CP.PCM.PN ---
Subjective - Date & Time of Evaluation Date of Evaluation: 10/28/17 Time of Evaluation: 21:12 - Subjective Subjective: Patient is currently having increasing cough, mucus production. Thick yellow mucus noted. Shortness of breaths, on BiPAP. Severe tachypnea noted. Patient at bedside. Oxygen saturation is 98%. On examination: Chest decreased air entry bilaterally noted. Velcro-like rales noted. Abdomen soft nontender no pedal edema. 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 Blood gas analysis showing evidence of CO2 retention, patient is having restrictive lung disease secondary to lung fibrosis. Patient is a candidate for Trilogy ventilator. Once is available patient can be discharged home. Meanwhile will start the patient on antibiotic, bronchodilators. Also we'll start the patient on corticosteroid. And will follow-up the patient Objective - Vital Signs/Intake and Output Vital Signs (last 24 hours): Temp Pulse Resp BP Pulse Ox 98.3 F 88 20 116/69 98 10/28/17 16:00 10/28/17 16:00 10/28/17 16:00 10/28/17 16:00 10/28/17 16:00 - Medications Medications: Current Medications Albuterol/Ipratropium (Duoneb 3 Mg/0.5 Mg (3 Ml) Ud) 3 ml INH RQ6 [facility] Last Admin: 10/28/17 19:20 Dose: 3 ml Alprazolam (Xanax) 0.25 mg PO HS PRN PRN Reason: Insomnia Stop: 11/04/17 20:08 Famotidine (Pepcid) 20 mg PO DAILY [facility] Last Admin: 10/28/17 09:32 Dose: 20 mg Gabapentin (Neurontin) 300 mg PO BID [facility] Last Admin: 10/28/17 17:36 Dose: 300 mg Heparin Sodium (Porcine) (Heparin) 5,000 units SC Q8 [facility] Last Admin: 10/28/17 13:14 Dose: 5,000 units Home Med (Patient's Own Medication) 3 tab PO TIDCC [facility] Last Admin: 10/28/17 17:35 Dose: 3 tab Moxifloxacin HCl (Avelox Iv 400mg/250ml Ns) 400 mg in 250 mls @ 167 mls/hr IVPB Q24H [facility] Methylprednisolone (Solu-Medrol) 40 mg IVP Q12 [facility] Montelukast Sodium (Singulair) 10 mg PO DAILY [facility] Last Admin: 10/28/17 09:32 Dose: 10 mg Pantoprazole Sodium (Protonix Ec Tab) 40 mg PO DAILY [facility] Last Admin: 10/28/17 09:32 Dose: 40 mg Promethazine HCl/Dextromethorphan (Phenergan Dm Syrup) 5 ml PO Q6 [facility] Last Admin: 10/28/17 17:36 Dose: 5 ml Raloxifene HCl (Evista) 60 mg PO DAILY [facility] Last Admin: 10/28/17 09:33 Dose: 60 mg Vitamin B Complex/Folic Acid (Berroca) 1 tab PO DAILY [facility] Last Admin: 10/28/17 09:33 Dose: 1 tab - Labs Labs: 10/25/17 12:33 10/25/17 12:33 PT 12.2 SECONDS (9.7-12.2) 10/25/17 12:33 INR 1.1 10/25/17 12:33 APTT 28 SECONDS (21-34) 10/25/17 12:33
[2017-10-28] MEDS: Moxifloxacin IV 400mg/250ml NS 400 MG/250 ML BAG IVPB SCH (21:29)
[2017-10-29] MEDS: Promethazine DM 6.25 mg-15 mg/5 ml Syrup PO SCH ×4 (00:17→18:20)
[2017-10-29] MEDS: Albuterol-Ipratrop 3 mg / 0.5 (3 ml) UD INH SCH ×4 (01:32→19:30)
[2017-10-29] MEDS: ESBRIET 267 MG PO SCH ×3 (08:30→17:50)
[2017-10-29] MEDS: MethylPREDNISolone 40 mg Vial IVP SCH ×2 (09:40→21:41)
[2017-10-29] MEDS: Pantoprazole 40 mg EC Tab PO SCH (09:40)
[2017-10-29] MEDS: LIPASE/PROTEASE/AMYLASE 4,200 U ECC PO SCH ×3 (09:44→18:18)
--- NOTE | 2017-10-29 11:41 | CP.PCM.PN ---
<Malika Love S - Last Filed: 10/29/17 11:55> Subjective - Date & Time of Evaluation Date of Evaluation: 10/29/17 Time of Evaluation: 11:00 - Subjective Subjective: Patient seen and examined at bedside, awake, Alert, ox3, using continuous BIPAP , c/0 sob , cough , and tacypnic upon minimal movement RN reported hypoxia upon removing bipap and paced on 4 liters of oxygen upon eating Objective - Vital Signs/Intake and Output Vital Signs (last 24 hours): Temp Pulse Resp BP Pulse Ox 97.7 F 88 18 146/71 95 10/29/17 07:30 10/29/17 10:00 10/29/17 07:30 10/29/17 07:30 10/29/17 07:30 Intake and Output: 10/29/17 10/29/17 06:59 18:59 Intake Total 120 Output Total 600 Balance -480 - Medications Medications: Current Medications Albuterol/Ipratropium (Duoneb 3 Mg/0.5 Mg (3 Ml) Ud) 3 ml INH RQ6 [facility] Last Admin: 10/29/17 08:19 Dose: 3 ml Alprazolam (Xanax) 0.25 mg PO HS PRN PRN Reason: Insomnia Stop: 11/04/17 20:08 Last Admin: 10/28/17 21:31 Dose: 0.25 mg Famotidine (Pepcid) 20 mg PO DAILY [facility] Last Admin: 10/29/17 09:40 Dose: 20 mg Gabapentin (Neurontin) 300 mg PO BID [facility] Last Admin: 10/29/17 09:39 Dose: 300 mg Heparin Sodium (Porcine) (Heparin) 5,000 units SC Q8 [facility] Last Admin: 10/29/17 05:26 Dose: 5,000 units Home Med (Patient's Own Medication) 3 tab PO TIDCC [facility] Last Admin: 10/29/17 08:30 Dose: 3 tab Moxifloxacin HCl (Avelox Iv 400mg/250ml Ns) 400 mg in 250 mls @ 167 mls/hr IVPB Q24H [facility] Last Admin: 10/28/17 21:29 Dose: 167 mls/hr Methylprednisolone (Solu-Medrol) 40 mg IVP Q12 [facility] Last Admin: 10/29/17 09:40 Dose: 40 mg Montelukast Sodium (Singulair) 10 mg PO DAILY [facility] Last Admin: 10/29/17 09:55 Dose: 10 mg Pantoprazole Sodium (Protonix Ec Tab) 40 mg PO DAILY [facility] Last Admin: 10/29/17 09:40 Dose: 40 mg Promethazine HCl/Dextromethorphan (Phenergan Dm Syrup) 5 ml PO Q6 [facility] Last Admin: 10/29/17 05:26 Dose: 5 ml Raloxifene HCl (Evista) 60 mg PO DAILY [facility] Last Admin: 10/29/17 09:45 Dose: 60 mg Vitamin B Complex/Folic Acid (Berroca) 1 tab PO DAILY [facility] Last Admin: 10/29/17 09:43 Dose: 1 tab - Labs Labs: 10/25/17 12:33 10/25/17 12:33 PT 12.2 SECONDS (9.7-12.2) 10/25/17 12:33 INR 1.1 10/25/17 12:33 APTT 28 SECONDS (21-34) 10/25/17 12:33 - Constitutional Appears: In Acute Distress (moderate ) - Head Exam Head Exam: ATRAUMATIC, NORMAL INSPECTION, NORMOCEPHALIC - ENT Exam ENT Exam: Mucous Membranes Moist - Respiratory Exam Respiratory Exam: Decreased Breath Sounds, Rhonchi, Wheezes, Respiratory Distress (moderate, tachypnic ) - Cardiovascular Exam Cardiovascular Exam: REGULAR RHYTHM, +S1, +S2 - Neurological Exam Neurological Exam: Alert, Awake, Oriented x3 Assessment and Plan - Assessment and Plan (Free Text) Assessment: A/P 62 yr old female with phx of , COPD , on home o2 ,bronchiectasis; pulmo fibrosis, Depression, Osteoporosis, Pneumonia admitted with incr. sob of breath x 1 week/Pulmonary fibrosis, Hypoxia Patient still tachypnic and hypoxic with minimal activity abg done - showing evidence of CO2 retention, Due to patients progressive disease process of chronic respiratory failure from COPD ,(stage 4 ) / pulmonary fibrosis I feel pt need continuous triology is warranted at this time. Bi pap was tried and proved to be ineffective in managing patients condition . Without triology , patient condition will continue to deteriorate, which may lead to medical harm <Cyndi Mclaughlin - Last Filed: 10/29/17 13:46> Objective - Vital Signs/Intake and Output Vital Signs (last 24 hours): Temp Pulse Resp BP Pulse Ox 97.7 F 88 18 146/71 95 10/29/17 07:30 10/29/17 10:00 10/29/17 07:30 10/29/17 07:30 10/29/17 07:30 Intake and Output: 10/29/17 10/29/17 06:59 18:59 Intake Total 120 Output Total 600 Balance -480 - Medications Medications: Current Medications Albuterol/Ipratropium (Duoneb 3 Mg/0.5 Mg (3 Ml) Ud) 3 ml INH RQ6 [facility] Last Admin: 10/29/17 13:13 Dose: 3 ml Alprazolam (Xanax) 0.25 mg PO HS PRN PRN Reason: Insomnia Stop: 11/04/17 20:08 Last Admin: 10/28/17 21:31 Dose: 0.25 mg Famotidine (Pepcid) 20 mg PO DAILY [facility] Last Admin: 10/29/17 09:40 Dose: 20 mg Gabapentin (Neurontin) 300 mg PO BID [facility] Last Admin: 10/29/17 09:39 Dose: 300 mg Heparin Sodium (Porcine) (Heparin) 5,000 units SC Q8 [facility] Last Admin: 10/29/17 13:13 Dose: 5,000 units Home Med (Patient's Own Medication) 3 tab PO TIDCC [facility] Last Admin: 10/29/17 12:30 Dose: 3 tab Moxifloxacin HCl (Avelox Iv 400mg/250ml Ns) 400 mg in 250 mls @ 167 mls/hr IVPB Q24H [facility] Last Admin: 10/28/17 21:29 Dose: 167 mls/hr Methylprednisolone (Solu-Medrol) 40 mg IVP Q12 [facility] Last Admin: 10/29/17 09:40 Dose: 40 mg Montelukast Sodium (Singulair) 10 mg PO DAILY [facility] Last Admin: 10/29/17 09:55 Dose: 10 mg Pantoprazole Sodium (Protonix Ec Tab) 40 mg PO DAILY [facility] Last Admin: 10/29/17 09:40 Dose: 40 mg Promethazine HCl/Dextromethorphan (Phenergan Dm Syrup) 5 ml PO Q6 [facility] Last Admin: 10/29/17 12:30 Dose: 5 ml Raloxifene HCl (Evista) 60 mg PO DAILY [facility] Last Admin: 10/29/17 09:45 Dose: 60 mg Vitamin B Complex/Folic Acid (Berroca) 1 tab PO DAILY [facility] Last Admin: 10/29/17 09:43 Dose: 1 tab - Labs Labs: 10/25/17 12:33 10/25/17 12:33 PT 12.2 SECONDS (9.7-12.2) 10/25/17 12:33 INR 1.1 10/25/17 12:33 APTT 28 SECONDS (21-34) 10/25/17 12:33 Attending/Attestation - Attestation I have personally seen and examined this patient.: Yes I have fully participated in the care of the patient.: Yes I have reviewed all pertinent clinical information, including history, physical exam and plan: Yes Notes (Text): 10/29/17 13:46 restrictive severe lung disease. Lung fibrosis. Patient is needing noninvasive ventilation continuously
--- NOTE | 2017-10-29 13:47 | CP.PCM.PN ---
Subjective - Date & Time of Evaluation Date of Evaluation: 10/29/17 Time of Evaluation: 13:47 - Subjective Subjective: Patient today feeling somewhat better. Less cough. Copious secretions noted. On BiPAP this morning. I advised the patient for out of bed to chair. Minimal expiratory wheezing and rales noted. On examination: HEENT PERRLA, neck supple No thyromegaly was noted and no cervical adenopathy noted Well cold-like rales noted, tachypneic CVS regular heart sound, no murmur Abdomen soft and no organomegaly Extremities no pedal edema, no leg swelling, pedal pulses are good. 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 Assessment and recommendation: 62-year-old female with history breast cancer, now admitted with the worsening lung fibrosis, possible recurrence of the breast cancer, no conclusive evidence of fall. Currently on BiPAP. Continue the bronchodilators, corticosteroid and antibiotic. Patient medically benefit with the Trilogy, medically necessary. Will follow the patient. Objective - Vital Signs/Intake and Output Vital Signs (last 24 hours): Temp Pulse Resp BP Pulse Ox 97.7 F 88 18 146/71 95 10/29/17 07:30 10/29/17 10:00 10/29/17 07:30 10/29/17 07:30 10/29/17 07:30 Intake and Output: 10/29/17 10/29/17 06:59 18:59 Intake Total 120 Output Total 600 Balance -480 - Medications Medications: Current Medications Albuterol/Ipratropium (Duoneb 3 Mg/0.5 Mg (3 Ml) Ud) 3 ml INH RQ6 [facility] Last Admin: 10/29/17 13:13 Dose: 3 ml Alprazolam (Xanax) 0.25 mg PO HS PRN PRN Reason: Insomnia Stop: 11/04/17 20:08 Last Admin: 10/28/17 21:31 Dose: 0.25 mg Famotidine (Pepcid) 20 mg PO DAILY [facility] Last Admin: 10/29/17 09:40 Dose: 20 mg Gabapentin (Neurontin) 300 mg PO BID [facility] Last Admin: 10/29/17 09:39 Dose: 300 mg Heparin Sodium (Porcine) (Heparin) 5,000 units SC Q8 [facility] Last Admin: 10/29/17 13:13 Dose: 5,000 units Home Med (Patient's Own Medication) 3 tab PO TIDCC [facility] Last Admin: 10/29/17 12:30 Dose: 3 tab Moxifloxacin HCl (Avelox Iv 400mg/250ml Ns) 400 mg in 250 mls @ 167 mls/hr IVPB Q24H [facility] Last Admin: 10/28/17 21:29 Dose: 167 mls/hr Methylprednisolone (Solu-Medrol) 40 mg IVP Q12 [facility] Last Admin: 10/29/17 09:40 Dose: 40 mg Montelukast Sodium (Singulair) 10 mg PO DAILY [facility] Last Admin: 10/29/17 09:55 Dose: 10 mg Pantoprazole Sodium (Protonix Ec Tab) 40 mg PO DAILY [facility] Last Admin: 10/29/17 09:40 Dose: 40 mg Promethazine HCl/Dextromethorphan (Phenergan Dm Syrup) 5 ml PO Q6 [facility] Last Admin: 10/29/17 12:30 Dose: 5 ml Raloxifene HCl (Evista) 60 mg PO DAILY [facility] Last Admin: 10/29/17 09:45 Dose: 60 mg Vitamin B Complex/Folic Acid (Berroca) 1 tab PO DAILY [facility] Last Admin: 10/29/17 09:43 Dose: 1 tab - Labs Labs: 10/25/17 12:33 10/25/17 12:33 PT 12.2 SECONDS (9.7-12.2) 10/25/17 12:33 INR 1.1 10/25/17 12:33 APTT 28 SECONDS (21-34) 10/25/17 12:33
[2017-10-29] MEDS: Moxifloxacin IV 400mg/250ml NS 400 MG/250 ML BAG IVPB SCH (21:01)
[2017-10-30] MEDS: Promethazine DM 6.25 mg-15 mg/5 ml Syrup PO SCH ×6 (00:30→18:13)
[2017-10-30] MEDS: Albuterol-Ipratrop 3 mg / 0.5 (3 ml) UD INH SCH ×4 (01:39→20:16)
[2017-10-30 07:09] LABS: BLOOD UREA NITROGEN 14 mg/dL (7-17); CALCIUM 8.2 mg/dl (8.6-10.4); GFR AFRICAN-AMERICAN > 60; GFR NON-AFRICAN AMERICAN > 60
[2017-10-30 07:12] LABS: BASO % 0.4 % (0.0-2.0); HEMOGLOBIN 13.7 g/dL (11.0-16.0); LYMPH # 3.4 K/uL (1.0-4.3); LYMPH % 24.6 % (20.0-40.0); MEAN CORPUSCULAR HGB CONC 32.9 g/dL (33.0-37.0); MEAN PLATELET VOLUME 7.6 fL (7.2-11.7); MONO # 0.9 K/uL (0.0-0.8); MONO % 6.8 % (0.0-10.0); NEUT # 9.4 K/uL (1.8-7.0); NEUT % 68.2 % (50.0-75.0); NRBC % 0.1 % (0.0-2.0); RBC 4.88 Mil/uL (3.80-5.20); RED CELL DISTRIBUTION WIDTH 14.7 % (11.5-14.5); WHITE BLOOD COUNT 13.8 K/uL (4.8-10.8)
[2017-10-30] MEDS: ESBRIET 267 MG PO SCH ×3 (09:00→18:09)
[2017-10-30] MEDS: LIPASE/PROTEASE/AMYLASE 4,200 U ECC PO SCH ×3 (09:00→18:08)
--- NOTE | 2017-10-30 09:27 | CP.PCM.PN ---
Subjective - Date & Time of Evaluation Date of Evaluation: 10/30/17 Time of Evaluation: 09:26 - Subjective Subjective: Patient is now somewhat better, able to eat well. She is also feeling hungry. Still tachypneic, using the BiPAP. Also using the nasal cannula on and off. Denies any chest pain. No nausea vomiting, cough slightly better, and also mucus production is better On examination: Vital signs are stable. 90/m, respiration is 28-40/m. Saturation is 96-98%. Currently on BiPAP Chest good air entry, but has noted regular heart sounds nontender abdomen No pedal edema Assessment and recommendation: 62-year-old female with a history of breast cancer, now having interstitial lung diseases, lung fibrosis. Worsening lung fibrotic changes. Acute exacerbation likely. Continue the steroid and antibiotic. Patient will be getting the home Trilogy, once she gets it she can be discharged to the home. She will follow up with the interventional radiologist for possible biopsy. Objective - Vital Signs/Intake and Output Vital Signs (last 24 hours): Temp Pulse Resp BP Pulse Ox 97.9 F 90 20 123/75 96 10/29/17 23:00 10/30/17 05:15 10/29/17 23:00 10/29/17 23:00 10/29/17 23:00 Intake and Output: 10/30/17 10/30/17 06:59 18:59 Intake Total 690 Output Total 300 Balance 390 - Medications Medications: Current Medications Albuterol/Ipratropium (Duoneb 3 Mg/0.5 Mg (3 Ml) Ud) 3 ml INH RQ6 [facility] Last Admin: 10/30/17 01:39 Dose: 3 ml Alprazolam (Xanax) 0.25 mg PO HS PRN PRN Reason: Insomnia Stop: 11/04/17 20:08 Last Admin: 10/29/17 21:43 Dose: 0.25 mg Famotidine (Pepcid) 20 mg PO DAILY [facility] Last Admin: 10/29/17 09:40 Dose: 20 mg Gabapentin (Neurontin) 300 mg PO BID [facility] Last Admin: 10/29/17 18:17 Dose: 300 mg Heparin Sodium (Porcine) (Heparin) 5,000 units SC Q8 [facility] Last Admin: 10/30/17 05:44 Dose: 5,000 units Home Med (Patient's Own Medication) 3 tab PO TIDCC [facility] Last Admin: 10/29/17 17:50 Dose: 3 tab Moxifloxacin HCl (Avelox Iv 400mg/250ml Ns) 400 mg in 250 mls @ 167 mls/hr IVPB Q24H [facility] Last Admin: 10/29/17 21:01 Dose: 167 mls/hr Methylprednisolone (Solu-Medrol) 40 mg IVP Q12 [facility] Last Admin: 10/29/17 21:41 Dose: 40 mg Montelukast Sodium (Singulair) 10 mg PO DAILY [facility] Last Admin: 10/29/17 09:55 Dose: 10 mg Pantoprazole Sodium (Protonix Ec Tab) 40 mg PO DAILY [facility] Last Admin: 10/29/17 09:40 Dose: 40 mg Promethazine HCl/Dextromethorphan (Phenergan Dm Syrup) 5 ml PO Q6 [facility] Last Admin: 10/30/17 05:45 Dose: 5 ml Raloxifene HCl (Evista) 60 mg PO DAILY [facility] Last Admin: 10/29/17 09:45 Dose: 60 mg Vitamin B Complex/Folic Acid (Berroca) 1 tab PO DAILY [facility] Last Admin: 10/29/17 09:43 Dose: 1 tab - Labs Labs: 10/30/17 06:34 10/30/17 06:34 PT 12.2 SECONDS (9.7-12.2) 10/25/17 12:33 INR 1.1 10/25/17 12:33 APTT 28 SECONDS (21-34) 10/25/17 12:33
[2017-10-30] MEDS: MethylPREDNISolone 40 mg Vial IVP SCH ×2 (10:18→21:33)
[2017-10-30] MEDS: Pantoprazole 40 mg EC Tab PO SCH (10:19)
[2017-10-30] MEDS: Moxifloxacin IV 400mg/250ml NS 400 MG/250 ML BAG IVPB SCH (20:44)
[2017-10-31] MEDS: Promethazine DM 6.25 mg-15 mg/5 ml Syrup PO SCH ×3 (00:20→12:36)
[2017-10-31] MEDS: Albuterol-Ipratrop 3 mg / 0.5 (3 ml) UD INH SCH ×3 (01:17→13:36)
[2017-10-31] MEDS: ESBRIET 267 MG PO SCH ×2 (08:06→12:35)
[2017-10-31] MEDS: LIPASE/PROTEASE/AMYLASE 4,200 U ECC PO SCH ×2 (10:14→14:35)
[2017-10-31] MEDS: Pantoprazole 40 mg EC Tab PO SCH (10:15)
[2017-10-31] MEDS: MethylPREDNISolone 40 mg Vial IVP SCH (10:15)
--- NOTE | 2017-10-31 12:43 | CP.PCM.DIS ---
Provider - Provider Date of Admission: 10/27/17 16:30 Attending physician: Cyndi Mclaughlin MD Time Spent in preparation of Discharge (in minutes): 45 Hospital Course - Lab Results Lab Results: Micro Results 10/25/17 12:19 Blood Blood Culture - Final NO GROWTH AFTER 5 DAYS 10/25/17 12:19 Blood Gram Stain - Final TEST NOT PERFORMED 10/25/17 12:19 Blood Blood Culture - Final NO GROWTH AFTER 5 DAYS 10/25/17 12:19 Blood Gram Stain - Final TEST NOT PERFORMED Most Recent Lab Values WBC 13.8 K/uL (4.8-10.8) H 10/30/17 06:34 RBC 4.88 Mil/uL (3.80-5.20) 10/30/17 06:34 Hgb 13.7 g/dL (11.0-16.0) 10/30/17 06:34 Hct 41.5 % (34.0-47.0) 10/30/17 06:34 MCV 85.0 fL (81.0-99.0) 10/30/17 06:34 MCH 28.0 pg (27.0-31.0) 10/30/17 06:34 MCHC 32.9 g/dL (33.0-37.0) L 10/30/17 06:34 RDW 14.7 % (11.5-14.5) H 10/30/17 06:34 Plt Count 429 K/uL (130-400) H 10/30/17 06:34 MPV 7.6 fL (7.2-11.7) 10/30/17 06:34 Neut % (Auto) 68.2 % (50.0-75.0) 10/30/17 06:34 Lymph % (Auto) 24.6 % (20.0-40.0) 10/30/17 06:34 [place] % (Auto) 6.8 % (0.0-10.0) 10/30/17 06:34 Eos % (Auto) 0.0 % (0.0-4.0) 10/30/17 06:34 Baso % (Auto) 0.4 % (0.0-2.0) 10/30/17 06:34 Neut # (Auto) 9.4 K/uL (1.8-7.0) H 10/30/17 06:34 Lymph # (Auto) 3.4 K/uL (1.0-4.3) 10/30/17 06:34 [place] # (Auto) 0.9 K/uL (0.0-0.8) H 10/30/17 06:34 Eos # (Auto) 0.0 K/uL (0.0-0.7) 10/30/17 06:34 Baso # (Auto) 0.0 K/uL (0.0-0.2) 10/30/17 06:34 PT 12.2 SECONDS (9.7-12.2) 10/25/17 12:33 INR 1.1 10/25/17 12:33 APTT 28 SECONDS (21-34) 10/25/17 12:33 Puncture Site Rba 10/28/17 15:54 pCO2 46 mm/Hg (35-45) H 10/28/17 15:54 pO2 136 mm/Hg (80-100) H 10/28/17 15:54 HCO3 29.7 mmol/L (21-28) H 10/28/17 15:54 ABG pH 7.44 (7.35-7.45) 10/28/17 15:54 ABG Total CO2 32.6 mmol/L (22-28) H 10/28/17 15:54 ABG O2 Saturation 99.8 % (95-98) H 10/28/17 15:54 ABG Base Excess 6.1 mmol/L (-2.0-3.0) H 10/28/17 15:54 ABG Hemoglobin 12.7 g/dL (11.7-17.4) 10/28/17 15:54 ABG Carboxyhemoglobin 2.0 % (0.5-1.5) H 10/28/17 15:54 POC ABG HHb (Measured) 0.2 % (0.0-5.0) 10/28/17 15:54 ABG Methemoglobin 1.5 % (0.0-3.0) 10/28/17 15:54 Watson Test Na 10/28/17 15:54 A-a O2 Difference 20.0 mm/Hg 10/28/17 15:54 Respiratory Index 0.1 10/28/17 15:54 Hgb O2 Saturation 96.3 % (95.0-98.0) 10/28/17 15:54 Liter Flow 3.0 10/28/17 15:54 FiO2 30.0 % 10/28/17 15:54 Sodium 139 mmol/L (132-148) 10/30/17 06:34 Potassium 4.1 mmol/L (3.6-5.2) 10/30/17 06:34 Chloride 97 mmol/L (98-107) L 10/30/17 06:34 Carbon Dioxide 30 mmol/L (22-30) 10/30/17 06:34 Anion Gap 16 (10-20) 10/30/17 06:34 BUN 14 mg/dL (7-17) 10/30/17 06:34 Creatinine 0.6 mg/dL (0.7-1.2) L 10/30/17 06:34 Est GFR ( Amer) > 60 10/30/17 06:34 Est GFR (Non-Af Amer) > 60 10/30/17 06:34 Random Glucose 135 mg/dL (65-105) H 10/30/17 06:34 Calcium 8.2 mg/dl (8.6-10.4) L 10/30/17 06:34 Total Bilirubin 0.3 mg/dL (0.2-1.3) 10/25/17 12:33 AST 34 U/L (14-36) 10/25/17 12:33 ALT 21 U/L (9-52) 10/25/17 12:33 Alkaline Phosphatase 78 U/L (38-126) 10/25/17 12:33 Troponin I < 0.0120 ng/mL (0.00-0.120) 10/25/17 12:33 NT-Pro-B Natriuret Pep 345 pg/mL (0-900) 10/25/17 12:33 Total Protein 8.2 g/dL (6.3-8.3) 10/25/17 12:33 Albumin 3.6 g/dL (3.5-5.0) 10/25/17 12:33 Globulin 4.6 gm/dL (2.2-3.9) H 10/25/17 12:33 Albumin/Globulin Ratio 0.8 (1.0-2.1) L 10/25/17 12:33 - Hospital Course Hospital Course: chief complaint: Shortness of breath History present illness: 62-year-old female with history of breast cancer, status post mastectomy in 1985 , and the radiation to the left side and the being followed up by oncologist regularly. 8 months ago. PET/CT was evaluated and nonspecific. Patient is currently complaining of increasing cough symptoms for almost 5 years , gradually getting worse. Mostly, the cough is dry, occasional wheezing noted. Cough is on and off. In the last a few months, at least to 3 months the patient is going to the emergency room more often. Patient is getting increasingly SOB, and also she started using the oxygen more often than before. Currently patient is using 3 L at home. But in spite of that her oxygen saturation is on the low side. Patient also went to see transplant center at the [facility], is scheduled to have a multiple workup. But given the history of breast cancer, records has to be ruled out. I also spoke to the oncologist to. Recent PET scan in August 2017 reviewed Improvement in the uptake noted, but worsening bilateral diffuse infiltrative changes, fibrotic changes noted. Since one month oxygenation is worsening, increasing cough noted, tachypnea noted. Weight as noted. Patient is also feeling somewhat bad, not improving The cough is getting worse, especially with his strong odor, also changing temperature whether, and also soco and smoky environment. At nighttime cough is also getting worse sometimes. S She has some pain along with the cough especially in the epigastric area. She has a history of recurrent diarrhea in the past, especially after eating meats. Associate with the some abdominal pain. Past medical history: Breast cancer history, and history of asthma Surgical history: , hip replacement, mastectomy 1985, status post irradiation. Family history: Father had a history of bone cancer. Mother with a lung cancer and emphysema. Siblings, many of them. History of dementia in the family. Social history: Denies any alcohol. Secondhand smoking noted. Drinks coffee daily. 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 Current medications: Singular, Ventolin, albuterol, Pulmicort, B12, will be Evista, Review of systems: Patient is currently having no headache, but cough and running nose, and associate with the dryness and wheezing. No sinusitis. Chest pain on and off Denies any GI symptoms. No leg swelling. On examination: HEENT PERRLA, neck supple No thyromegaly was noted and no cervical adenopathy noted Chest bilateral rales volcro-like ronchi noted CVS regular heart sound, no murmur Abdomen soft and no organomegaly Extremities no pedal edema, no leg swelling, pedal pulses are good. FAITH HEALER alert awake oriented x3 no functional neurological deficit. Patient's labs reviewed Nonspecific. Elevated WBC secondary to possibly corticosteroid. Assessment and recommendation: 61-year-old female with history of breast cancer, stable. History of radiation. Patient had a significant exposure to organic chemicals in the past. Patient now having worsening cough. Gradually worsening for 5 years, more than. Occupational exposure likely, and got worse, and by possibly radiation. Patient possibly has a worsening lung fibrosis under oxygen dependent. Underlying metastatic lung cannot be ruled out. We will get the tumor markers. We'll get the oncological discussion, from the hospital. We'll continue the BiPAP, oxygen supplementation, a nasal corticosteroid, intravenous on a Medrol. DVT prophylaxis and will follow the patient Course in the hospital: Patient was initially having severe respiratory distress, is dependent on noninvasive ventilation. Patient also started having increasing coughing, increasing mucus production. She was placed on antibiotic, and also intravenous Solu-Medrol. Patient started slowly improving in her symptoms. She still using respiratory distress and using bipap She still needs BiPAP at nighttime especially. Patient's blood gas analysis showing evidence of PCO2 46. Patient was not able to be in room air, because of the severe oxygenation desaturation, so patient constantly need high flow FiO2 to maintain oxygenation. Patient also has a severe respiratory distress after coughing, with the episodes of coughing spells. Currently patient is stable. She will be needing 4-5 L/m oxygenation. She will be discharged home with a Levaquin, prednisone. She will continue the oxygen. Patient will need Trilogy as continuous noninvasive ventilation mostly at night and also as needed during the daytime. Patient is benefiting with this supportive ventilation Patient has a chronic restrictive lung disease secondary to lung fibrosis, worsening recently. Also patient has history of breast cancer, suspected metastatic disease cannot be ruled out. Patient will be getting the right upper lung transthoracic needle biopsy tomorrow at [facility] to rule out underlying malignant infiltrate. Clinically patient is otherwise stable, she'll be discharged home, I spoke to the patient's and explained the whole condition. Discharge Exam - Head Exam Head Exam: ATRAUMATIC, NORMAL INSPECTION, NORMOCEPHALIC Discharge Plan - Discharge Medications Prescriptions: Prednisone [Deltasone] 20 mg PO DAILY #10 tablet Levofloxacin [Levaquin] 500 mg PO DAILY #7 tablet - Follow Up Plan Condition: FAIR Disposition: HOME/ ROUTINE Instructions: Heart Healthy Diet, Low Salt Diet, Shortness of Breath (Dyspnea) , Idiopathic Pulmonary Fibrosis (DC) Additional Instructions: Activity as tolerated, rest in between. Referrals: Cyndi Mclaughlin MD [Staff Provider] - 1 Week
[2017-10-31 16:54] VITALS: BP 126/71; PULSE 93; RESP 20; TEMP 98.2; O2SAT 99
== END 2017-10-31 15:50 | disposition home or self-care (01) | DRG 197 ==
LOC: C.ER 11:35 → C.9E 14:04 → C.5S 22:44 → C.6T 10-26 11:16 → OBSVTOIN 10-27 16:30
PROVIDERS: ADMIT Internal Medicine; ATTEND Internal Medicine
PROC: 5A09457 Assistance with Respiratory Ventilation, 24-96 Consecutive Hours, Continuous Positive Airway Pressure (ICD-10-PCS; principal; 2017-10-27)
DX: J84.10 Pulmonary fibrosis, unspecified (principal); J96.11 Chronic respiratory failure with hypoxia; Z99.81 Dependence on supplemental oxygen; J98.11 Atelectasis; J44.9 Chronic obstructive pulmonary disease, unspecified; Z57.5 Occupational exposure to toxic agents in other industries; R00.0 Tachycardia, unspecified; F32.9 Major depressive disorder, single episode, unspecified; M81.0 Age-related osteoporosis without current pathological fracture; Z80.1 Family history of malignant neoplasm of trachea, bronchus and lung; Z80.8 Family history of malignant neoplasm of other organs or systems; Z85.3 Personal history of malignant neoplasm of breast; Z87.01 Personal history of pneumonia (recurrent); Z92.3 Personal history of irradiation

== ENCOUNTER 2017-11-16 21:16 | Inpatient (IN) | payer BC, MEDICARE ==
[2017-11-16 21:16] VITALS: BMI 30.5
--- NOTE | 2017-11-16 21:41 | C.PDOC ---
History Of Present Illness 62 year old female presents to the ED accompanied by her family for evaluation of SOB. Patient has home O2, her family reports they noticed her oxygen saturation was dropping today while at home. On arrival to the ED patient appears in moderate discomfort. Patient denies CP, palpitations, fever, chills, nausea. vomit. Time Seen by Provider: 11/16/17 21:40 Chief Complaint (Nursing): Shortness Of Breath History Per: Patient, Family History/Exam Limitations: no limitations Onset/Duration Of Symptoms: Hrs Current Symptoms Are (Timing): Still Present Initiating Event: Other Exacerbating Factor(s): Exertion, Laying Flat, Coughing Current Respiratory Medications: See Home Med List Severity: Severe Pain Scale Rating Of: 7 Associated Symptoms: denies: Fever, Chills, Chest Pain Reports Recently: Seen In ED, Treated By A Physician, Hospitalized Recent travel outside of the [place]: No Additional History Per: Patient Past Medical History Reviewed: Historical Data, Nursing Documentation, Vital Signs Vital Signs: Last Vital Signs Temp 98.2 F 11/16/17 21:28 Pulse 112 H 11/16/17 23:12 Resp 36 H 11/16/17 23:12 BP 122/58 L 11/16/17 23:12 Pulse Ox 100 11/16/17 23:12 - Medical History PMH: Arthritis, Asthma, Bronchitis, CHF, COPD, Depression, Gall Bladder Disease (choleycstectomy), Osteoporosis, Pneumonia Denies: Parkinson's Disease, Chronic Kidney Disease Surgical History: Appendectomy, Cholecystectomy, Endoscopy Denies: Pacemaker - [facility] Procedures ASSISTANCE WITH RESPIRATORY VENTILATION, 24-96 HRS, CPAP (10/27/17) CLOSED ENDOSCOPIC BIOPSY OF LARGE INTESTINE (02/25/07) DPT ADMINISTRATION (11/13/13) ENDO EXCISION/DEST OF LESION OR TISSUE OF STOMACH (02/01/14) ENDOSC POLYPECTOMY OF LG INTEST (02/01/14) ESOPHAGOGASTRODUODENOSCOPY [EGD] W/CLOSED BIOPSY (10/11/14) INJECT/INFUSE NEC (02/28/15) INTRODUCE OF OTH THERAP SUBST INTO RESP TRACT, VIA OPENING (09/06/17) NEBULIZER THERAPY (08/11/13) Family History: States: Unknown Family Hx - Social History Hx Tobacco Use: No Hx Alcohol Use: No Hx Substance Use: No - Immunization History Hx Tetanus Toxoid Vaccination: No Hx Influenza Vaccination: Yes Hx Pneumococcal Vaccination: (PT UNSURE) Review Of Systems Constitutional: Negative for: Fever, Chills Cardiovascular: Negative for: Chest Pain, Palpitations Respiratory: Positive for: Shortness of Breath. Negative for: Cough Gastrointestinal: Negative for: Nausea, Vomiting, Abdominal Pain Musculoskeletal: Negative for: Back Pain Skin: Negative for: Rash Neurological: Negative for: Weakness, Numbness Psych: Positive for: Anxiety Physical Exam - Physical Exam Appears: Non-toxic, No Acute Distress Skin: Warm, Dry Head: Normacephalic Eye(s): bilateral: Normal Inspection Nose: No Discharge, No Deformity Oral Mucosa: Dry Neck: Trachea Midline, Supple Chest: Symmetrical Cardiovascular: Rhythm Regular (Tachycardic), No Murmur Respiratory: Decreased Breath Sounds (B/L), No Rales, Rhonchi (B/L at bases), Wheezing (few ) Gastrointestinal/Abdominal: Soft, No Tenderness, No Guarding, No Rebound Back: No CVA Tenderness Extremity: Normal ROM, No Tenderness, No Swelling Extremity: Bilateral: Atraumatic, Normal Color And Temperature Pulses: Left Dorsalis Pedis: Normal, Right Dorsalis Pedis: Normal Neurological/Psych: Oriented x3 Gait: Unable To Assess ED Course And Treatment - Laboratory Results Result Diagrams: 11/16/17 22:07 11/16/17 21:40 ECG: Interpreted By Me, Viewed By Me ECG Rhythm: Sinus Tachycardia (115), Nonspecific Changes (rbbb) O2 Sat by Pulse Oximetry: 98 (On RA) Pulse Ox Interpretation: Normal - Radiology CXR: Interpreted by Me, Viewed By Me Progress Note: Plan: -Abg. -EKG. -CXR. -Labs. -Duoneb 3 ml INH. -Blood culture. -Nebulizer treatment. -UA Critical Care Time - Critical Care Note Total Time (in mins): 30 Documented critical care: time excludes all time spent performing seperately billable procedures. Disposition Discussed With : Cyndi Mclaughlin Comment: accepted the pt on his service and took over the care at 11:57PM Counseled Patient/Family Regarding: Studies Performed, Diagnosis - Disposition Disposition: HOSPITALIZED Disposition Time: 21:40 Condition: FAIR Forms: [employer] (Khmer) - POA Present On Arrival: Poor Glycemic Control - Clinical Impression Clinical Impression: COPD (chronic obstructive pulmonary disease), Pneumonia, Dyspnea, Interstitial lung disease - Scribe Statement The provider has reviewed the documentation as recorded by the Scribe Emil Alvarenga All medical record entries made by the Scribe were at my direction and personally dictated by me. I have reviewed the chart and agree that the record accurately reflects my personal performance of the history, physical exam, medical decision making, and the department course for this patient. I have also personally directed, reviewed, and agree with the discharge instructions and disposition. Decision To Admit - Pt Status Changed To: Hospital Disposition Of: Inpatient - Admit Certification Admit to Inpatient:: After my assessment, the patient will require hospitalization for at least two midnights. This is because of the severity of symptoms shown, intensity of services needed, and/or the medical risk in this patient being treated as an outpatient. - InPatient: Physician Admission Certification: I certify that this patient requires 2 or more midnights of care for the following reason:: After my assessment, the patient will require hospitalization for at least two midnights. This is because of the severity of symptoms shown, intensity of services needed, and/or the medical risk in this patient being treated as an outpatient. - . Bed Request Type: Telemetry Admitting Physician: Cyndi Mclaughlin Patient Diagnosis: COPD (chronic obstructive pulmonary disease), Pneumonia, Dyspnea, Interstitial lung disease
[2017-11-16] MEDS: Albuterol-Ipratrop 3 mg / 0.5 (3 ml) UD IH SCH ×3 (22:00→22:35)
[2017-11-16 22:06] LABS: ALB/GLOB RATIO 0.9 (1.0-2.1); ALBUMIN 3.5 g/dL (3.5-5.0); ALT/SGPT 22 U/L (9-52); AST/SGOT 35 U/L (14-36); BLOOD UREA NITROGEN 9 mg/dL (7-17); CALCIUM 8.6 mg/dl (8.6-10.4); GFR AFRICAN-AMERICAN > 60; GFR NON-AFRICAN AMERICAN > 60
[2017-11-16] MEDS ORDERED: Albuterol-Ipratrop 3 mg / 0.5 (3 ml) UD ONE (22:14)
[2017-11-16 22:16] LABS: B-TYPE NATRIURETIC PEPTIDE 375 pg/mL (0-900)
[2017-11-16 22:19] LABS: BASO # 0.1 K/uL (0.0-0.2); BASO % 0.9 % (0.0-2.0); EOS # 0.9 K/uL (0.0-0.7); EOS % 7.1 % (0.0-4.0); LYMPH % 23.3 % (20.0-40.0); MEAN CELL VOLUME 85.2 fL (81.0-99.0); MEAN CORPUSCULAR HEMOGLOBIN 27.8 pg (27.0-31.0); MEAN CORPUSCULAR HGB CONC 32.6 g/dL (33.0-37.0); MEAN PLATELET VOLUME 7.6 fL (7.2-11.7); MONO # 0.9 K/uL (0.0-0.8); MONO % 6.9 % (0.0-10.0); NEUT % 61.8 % (50.0-75.0); NRBC % 0.1 % (0.0-2.0); RBC 4.68 Mil/uL (3.80-5.20); RED CELL DISTRIBUTION WIDTH 16.2 % (11.5-14.5)
[2017-11-16 22:21] LABS: PROTHROMBIN TIME 11.4 SECONDS (9.7-12.2)
[2017-11-16] MEDS ORDERED: Piperacillin/Tazobact 3.375 gm 100 ML IVPB STA (23:56)
[2017-11-17 00:30] LABS: SQUAMOUS EPITHIAL < 1 /hpf (0-5); URINE BACTERIA RARE (<OCC); URINE BILIRUBIN NEGATIVE (NEGATIVE); URINE BLOOD 1+ (NEGATIVE); URINE CLARITY Clear (Clear); URINE COLOR Yellow (YELLOW); URINE GLUCOSE (UA) NORMAL (Normal); URINE LEUKOCYTE ESTERASE NEG Leu/uL (Negative); URINE PROTEIN NEGATIVE (NEGATIVE); URINE UROBILINOGEN NORMAL mg/dL (0.2-1.0)
[2017-11-17] MEDS ORDERED: Moxifloxacin IV 400mg/250ml NS 400 MG/250 ML BAG IVPB SCH (00:30)
[2017-11-17] MEDS: Azithromycin 500 MG in Sodium Chloride 0.9% 250 ML IVPB SCH ×2 (00:59→11:00)
[2017-11-17] MEDS: MethylPREDNISolone 40 mg Vial IVP SCH ×3 (05:31→21:14)
--- NOTE | 2017-11-17 07:03 | RAD ---
PROCEDURE: CHEST RADIOGRAPH, 1 VIEW HISTORY: SOB COMPARISON: Portable chest 10/25/2017. FINDINGS: LUNGS: Taking differences in technique into account, predominately interstitial infiltrates are again appreciate bilaterally on a chronic basis greater at the left and right sides. Underlying alveolar component is not completely excluded at the medial right base or the mid to inferior left lung zones. Nevertheless, there is slightly improved aeration at the medial left base. PLEURA: No pneumothorax or pleural fluid seen. CARDIOVASCULAR: Cardiomediastinal silhouette appears stable. Underlying pulmonary venous congestion is not completely excluded. OSSEOUS STRUCTURES: No significant abnormalities. VISUALIZED UPPER ABDOMEN: Normal. OTHER FINDINGS: None. IMPRESSION: Chronic interstitial pulmonary changes persist with underlying pulmonary venous congestion not completely excluded. Underlying alveolitis is also not excluded at both bases versus atelectasis.
[2017-11-17] MEDS: Albuterol-Ipratrop 3 mg / 0.5 (3 ml) UD INH SCH ×3 (07:48→20:37)
[2017-11-17] MEDS: Budesonide 0.5 mg/2 ml Inhal Susp UD INH SCH ×2 (07:48→20:38)
[2017-11-17] MEDS ORDERED: Home Med 1 UNIT (Lipase/Protease/Amylase [Creon Dr 12,000 Units Capsule] 1 EACH) PO SCH (10:00)
[2017-11-17] MEDS: PIRFENIDONE PO SCH ×3 (11:00→19:35)
[2017-11-17] MEDS: Enoxaparin 40 mg Syringe SC SCH (11:00)
[2017-11-17] MEDS: Pantoprazole 20 mg EC Tab PO SCH (11:00)
[2017-11-17] MEDS: Multivitamin Vitamin B Complex (Nephro-Vite) Tab PO SCH (11:00)
[2017-11-17] MEDS: Promethazine/Cod 6.25mg-10mg/5ml Syr UD PO PRN (11:40)
--- NOTE | 2017-11-17 12:15 | CARD ---
APPROVED REPORT EKG Measurement Heart [id number] <Conclusion> Sinus tachycardia Left axis deviation Right bundle branch block Inferior infarct, age undetermined Abnormal ECG
[2017-11-17] MEDS: LIPASE PO SCH (19:36)
[2017-11-17] MEDS: PROTEASE PO SCH (19:36)
[2017-11-17] MEDS: AMYLASE PO SCH (19:36)
--- NOTE | 2017-11-17 22:17 | CP.PCM.HP ---
History of Present Illness - History of Present Illness History of Present Illness: chief complaint: severe SOB, severe hypoxia,brought the ambulance. History present illness: 62-year-old female with history of breast cancer, status post mastectomy in 1985 , and the radiation to the left side and the being followed up by oncologist regularly. 8 months ago. PET/CT was evaluated and nonspecific. Patient is currently complaining of increasing cough symptoms for almost 5 years , gradually getting worse. Mostly, the cough is dry, occasional wheezing noted. Cough is on and off. Patient was recently hospitalized at that time, patient having increasing episodes of shortness of breath. Currently patient is complaining of worsening SOB, cough associated with the oxygen desaturation. Patient was diagnosed with lung fibrosis. Patient was seen by a lung transplant team at the [facility], and patient is officially on the list at this time. In the morning patient was working, later afternoon patient started having sudden onset of coughing spells, and severe hypoxia, she become more pale, cyanotic and called ambulance. Past medical history: Breast cancer history, and history of asthma Surgical history: , hip replacement, mastectomy 1985, status post irradiation. Family history: Father had a history of bone cancer. Mother with a lung cancer and emphysema. Siblings, many of them. History of dementia in the family. Social history: Denies any alcohol. Secondhand smoking noted. Drinks coffee daily. 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 Current medications: Singular, Ventolin, albuterol, Pulmicort, B12, will be Evista, Review of systems: Patient is currently having no headache, but cough and running nose, and associate with the dryness and wheezing. No sinusitis. Chest pain on and off Denies any GI symptoms. No leg swelling. On examination: HEENT PERRLA, neck supple No thyromegaly was noted and no cervical adenopathy noted Chest bilateral rales volcro-like ronchi noted CVS regular heart sound, no murmur Abdomen soft and no organomegaly Extremities no pedal edema, no leg swelling, pedal pulses are good. 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 Patient's labs reviewed Nonspecific. Elevated WBC secondary to possibly corticosteroid. Assessment and recommendation: 61-year-old female with history of breast cancer, stable. History of radiation. Patient had a significant exposure to organic chemicals in the past. Patient now having worsening cough. Gradually worsening for 5 years, more than. Occupational exposure likely, and got worse, and by possibly radiation. Patient possibly has a worsening lung fibrosis under oxygen dependent. We'll continue the BiPAP, oxygen supplementation, a nasal corticosteroid, intravenous on a Medrol. DVT prophylaxis and will follow the patient The patient currently has allowed home bronchodilators, and abrasive, home oxygen, and noninvasive ventilation. In spite of that the patient was not improving. Currently the patient is having thick mucus production. Will get a sputum culture. Also start the patient on vancomycin possibly. For possible staphylococcal infection. The patient Present on Admission - Present on Admission Any Indicators Present on Admission: No History of DVT/PE: No History of Uncontrolled Diabetes: No Urinary Catheter: No Decubitus Ulcer Present: No Past Patient History - Infectious Disease Hx of Infectious Diseases: None - Tetanus Immunizations Tetanus Immunization: Unknown - Past Medical History & Family History Past Medical History?: Yes - Past Social History Smoking Status: Never Smoked - CARDIAC Hx Congestive Heart Failure: Yes Hx Pacemaker: No - PULMONARY Hx Asthma: Yes Hx Bronchitis: Yes Hx Chronic Obstructive Pulmonary Disease (COPD): Yes Hx Pneumonia: Yes - NEUROLOGICAL Hx Parkinson's Disease: No - HEENT Hx HEENT Problems: Yes Hx Cataracts: Yes - RENAL Hx Chronic Kidney Disease: No - ENDOCRINE/METABOLIC Hx Endocrine Disorders: No - HEMATOLOGICAL/ONCOLOGICAL Hx Blood Disorders: Yes Hx Cancer: Yes (breast) - INTEGUMENTARY Hx Dermatological Problems: No - MUSCULOSKELETAL/RHEUMATOLOGICAL Hx Falls: No - GASTROINTESTINAL Hx Gall Bladder Disease: Yes (choleycstectomy) - GENITOURINARY/GYNECOLOGICAL Hx Genitourinary Disorders: No - PSYCHIATRIC Hx Substance Use: No - SURGICAL HISTORY Hx Appendectomy: Yes Hx Cholecystectomy: Yes Hx Mastectomy: Yes (left breast) - ANESTHESIA Hx Anesthesia: Yes Hx Anesthesia Reactions: No Hx Malignant Hyperthermia: No Meds Allergies/Adverse Reactions: Allergies Allergy/AdvReac Type Severity Reaction Status Date / Time No Known Allergies Allergy Verified 11/16/17 21:36 Results - Vital Signs Recent Vital Signs: Last Vital Signs Temp 98.4 F 11/17/17 15:00 Pulse 109 H 11/17/17 21:08 Resp 20 11/17/17 15:00 BP 115/62 11/17/17 15:00 Pulse Ox 93 L 11/17/17 15:00 - Labs Result Diagrams: 11/16/17 22:07 11/16/17 21:40 Labs: Laboratory Results - last 24 hr 11/16/17 11/16/17 11/16/17 21:40 22:07 22:07 WBC 13.0 H RBC 4.68 Hgb 13.0 Hct 39.9 MCV 85.2 MCH 27.8 MCHC 32.6 L RDW 16.2 H Plt Count 249 D MPV 7.6 Neut % (Auto) 61.8 Lymph % (Auto) 23.3 [place] % (Auto) 6.9 Eos % (Auto) 7.1 H Baso % (Auto) 0.9 Neut # (Auto) 8.0 H Lymph # (Auto) 3.0 [place] # (Auto) 0.9 H Eos # (Auto) 0.9 H Baso # (Auto) 0.1 PT 11.4 INR 1.0 APTT 21 Troponin I < 0.0120 NT-Pro-B Natriuret Pep 375 Urine Color Urine Clarity Urine pH Ur Specific [place] Urine Protein Urine Glucose (UA) Urine Ketones Urine Blood Urine Nitrate Urine Bilirubin Urine Urobilinogen Ur Leukocyte Esterase Urine WBC (Auto) Urine RBC (Auto) Ur Squamous Epith Cells Urine Bacteria 11/17/17 00:20 WBC RBC Hgb Hct MCV MCH MCHC RDW Plt Count MPV Neut % (Auto) Lymph % (Auto) [place] % (Auto) Eos % (Auto) Baso % (Auto) Neut # (Auto) Lymph # (Auto) [place] # (Auto) Eos # (Auto) Baso # (Auto) PT INR APTT Troponin I NT-Pro-B Natriuret Pep Urine Color Yellow Urine Clarity Clear Urine pH 6.0 Ur Specific [place] 1.009 Urine Protein Negative Urine Glucose (UA) Normal Urine Ketones Negative Urine Blood 1+ H Urine Nitrate Negative Urine Bilirubin Negative Urine Urobilinogen Normal Ur Leukocyte Esterase Neg Urine WBC (Auto) 2 Urine RBC (Auto) 9 H Ur Squamous Epith Cells < 1 Urine Bacteria Rare
[2017-11-18] MEDS: Albuterol-Ipratrop 3 mg / 0.5 (3 ml) UD INH SCH ×3 (01:07→13:15)
[2017-11-18] MEDS: Promethazine/Cod 6.25mg-10mg/5ml Syr UD PO PRN ×3 (06:04→18:08)
[2017-11-18] MEDS: MethylPREDNISolone 40 mg Vial IVP SCH ×2 (06:04→13:50)
[2017-11-18] MEDS: Budesonide 0.5 mg/2 ml Inhal Susp UD INH SCH (07:39)
[2017-11-18] MEDS: Enoxaparin 40 mg Syringe SC SCH (09:44)
[2017-11-18] MEDS: Azithromycin 500 MG in Sodium Chloride 0.9% 250 ML IVPB SCH (09:44)
[2017-11-18] MEDS: PROTEASE PO SCH ×3 (09:45→17:15)
[2017-11-18] MEDS: LIPASE PO SCH ×3 (09:45→17:15)
[2017-11-18] MEDS: PIRFENIDONE PO SCH ×3 (09:45→17:16)
[2017-11-18] MEDS: AMYLASE PO SCH ×3 (09:45→17:15)
[2017-11-18] MEDS: Multivitamin Vitamin B Complex (Nephro-Vite) Tab PO SCH (10:37)
[2017-11-18] MEDS: Pantoprazole 20 mg EC Tab PO SCH (10:37)
[2017-11-18 15:54] VITALS: BP 110/62; RESP 20; TEMP 98; O2SAT 95
[2017-11-18 16:10] VITALS: PULSE 109
--- NOTE | 2017-11-18 16:35 | CP.PCM.PN ---
Subjective - Date & Time of Evaluation Date of Evaluation: 11/18/17 Time of Evaluation: 11:35 - Subjective Subjective: Patient seen today, states feels better today an dsob improved , still coughing with white color sputum , denies any chest pain, palpitations, abdominal pain N/ V/D af ebrile spo2 94-95% on o2 Objective - Vital Signs/Intake and Output Vital Signs (last 24 hours): Temp Pulse Resp BP Pulse Ox 98.0 F 109 H 20 110/62 95 11/18/17 15:15 11/18/17 16:00 11/18/17 15:15 11/18/17 15:15 11/18/17 15:15 Intake and Output: 11/18/17 11/18/17 06:59 18:59 Intake Total 800 Balance 800 - Medications Medications: Current Medications Albuterol/Ipratropium (Duoneb 3 Mg/0.5 Mg (3 Ml) Ud) 3 ml INH RQ6 [facility] Last Admin: 11/18/17 13:15 Dose: 3 ml Alprazolam (Xanax) 0.25 mg PO BID PRN PRN Reason: Anxiety Stop: 11/24/17 00:18 Last Admin: 11/17/17 00:46 Dose: 0.25 mg Budesonide (Pulmicort Respules) 0.5 mg INH RQ12 [facility] Last Admin: 11/18/17 07:39 Dose: 0.5 mg Clonazepam (Klonopin) 0.5 mg PO BID [facility] Last Admin: 11/18/17 09:45 Dose: 0.5 mg Enoxaparin Sodium (Lovenox) 40 mg SC DAILY [facility] Last Admin: 11/18/17 09:44 Dose: 40 mg Gabapentin (Neurontin) 300 mg PO BID [facility] Last Admin: 11/18/17 09:45 Dose: 300 mg Home Med (Patient's Own Medication) 3 tab PO TID [facility] Last Admin: 11/18/17 14:18 Dose: 3 tab Home Med (Patient's Own Medication) 1 tab PO TID [facility] Last Admin: 11/18/17 14:19 Dose: 1 tab Azithromycin 500 mg/ Sodium (Chloride) 250 mls @ 250 mls/hr IVPB DAILY [facility] PRN Reason: Protocol Last Admin: 11/18/17 09:44 Dose: 250 mls/hr Ceftriaxone Sodium 1 gm/ (Sodium Chloride) 100 mls @ 100 mls/hr IVPB DAILY [facility] PRN Reason: Protocol Last Admin: 11/18/17 09:43 Dose: 100 mls/hr Methylprednisolone (Solu-Medrol) 40 mg IVP Q8 [facility] Last Admin: 11/18/17 13:50 Dose: 40 mg Montelukast Sodium (Singulair) 10 mg PO DAILY [facility] Last Admin: 11/18/17 09:45 Dose: 10 mg Pantoprazole Sodium (Protonix Ec Tab) 20 mg PO DAILY [facility] Last Admin: 11/18/17 10:37 Dose: 20 mg Promethazine HCl/Codeine (Phenergan/Codeine Oral Syrup) 5 ml PO Q4 PRN PRN Reason: Cough Last Admin: 11/18/17 13:46 Dose: 5 ml Raloxifene HCl (Evista) 60 mg PO DAILY [facility] Last Admin: 11/18/17 10:36 Dose: 60 mg Vitamin B Complex/Vit C/Folic Acid (Nephro-Guido) 1 tab PO DAILY [facility] Last Admin: 11/18/17 10:37 Dose: 1 tab - Labs Labs: 11/16/17 22:07 11/16/17 21:40 PT 11.4 SECONDS (9.7-12.2) 11/16/17 22:07 INR 1.0 11/16/17 22:07 APTT 21 SECONDS (21-34) 11/16/17 22:07 - Constitutional Appears: No Acute Distress - Respiratory Exam Respiratory Exam: Decreased Breath Sounds, NORMAL BREATHING PATTERN - Cardiovascular Exam Cardiovascular Exam: Tachycardia, REGULAR RHYTHM, +S1, +S2 Assessment and Plan - Assessment and Plan (Free Text) Assessment: A/P 62 yr old female admitted with sob sob improved Patient has home o2 and triology D/w Dr. Lissette pack for discharge home today , continue prednisone and avelox for 5 daysand f/u with Dr. Lissette cooper in 1 week Discharge plan discussed with patient and daughter at bed [facility], who understands and agrees with plan
== END 2017-11-18 18:20 | disposition home or self-care (01) | DRG 190 ==
LOC: C.ER 21:16 → C.9E 23:56 → C.3T 11-17 00:24 → C.9E 11-17 00:37 → C.6T 11-17 00:59
PROVIDERS: ADMIT Internal Medicine; ATTEND Internal Medicine
PROC: 5A09357 Assistance with Respiratory Ventilation, Less than 24 Consecutive Hours, Continuous Positive Airway Pressure (ICD-10-PCS; principal; 2017-11-17)
DX: J44.0 Chronic obstructive pulmonary disease with (acute) lower respiratory infection (principal); J18.9 Pneumonia, unspecified organism; J84.10 Pulmonary fibrosis, unspecified; I50.9 Heart failure, unspecified; Z99.81 Dependence on supplemental oxygen; M81.0 Age-related osteoporosis without current pathological fracture; R09.02 Hypoxemia; H26.9 Unspecified cataract; Z96.649 Presence of unspecified artificial hip joint; Z85.3 Personal history of malignant neoplasm of breast; Z87.01 Personal history of pneumonia (recurrent); Z90.12 Acquired absence of left breast and nipple; Z92.3 Personal history of irradiation; Z90.49 Acquired absence of other specified parts of digestive tract

== ENCOUNTER 2017-11-28 14:30 | Inpatient (IN) | payer BC, MEDICARE ==
[2017-11-28 14:34] VITALS: BMI 25.4
--- NOTE | 2017-11-28 15:18 | C.PDOC ---
History Of Present Illness Patient is a 62 y/o female, with a Hx of breast cancer, who presents to the ED with a complaint of worsening SOB since last night. Patient reports to have been diagnosed with lung fibrosis and is on the transplant list. Admits to using home-O2 all the time, noting saturation has been decreasing and taking longer to rise. Patient adds becoming very SOB even when transferring from bed to commode. Denies any chest pain or fever; admits coughing and runny nose. Patient has no other physical complaints at this time. Time Seen by Provider: 11/28/17 14:40 Chief Complaint (Nursing): Shortness Of Breath History Per: Patient History/Exam Limitations: no limitations Onset/Duration Of Symptoms: Hrs (last night) Current Symptoms Are (Timing): Worse Associated Symptoms: Other (O2-desaturation). denies: Fever, Chest Pain Recent travel outside of the [place]: No Past Medical History Reviewed: Historical Data, Nursing Documentation, Vital Signs Vital Signs: Last Vital Signs Temp 98.7 F 11/28/17 16:45 Pulse 115 H 11/28/17 16:45 Resp 26 H 11/28/17 16:45 BP 122/49 L 11/28/17 16:45 Pulse Ox 94 L 11/28/17 16:45 - Medical History PMH: Arthritis, Asthma, Bronchitis, CHF, COPD, Depression, Gall Bladder Disease (choleycstectomy), Osteoporosis, Pneumonia Denies: Parkinson's Disease, Chronic Kidney Disease Other PMH: breast cancer, lung fibrosis Surgical History: Appendectomy, Cholecystectomy, Endoscopy Denies: Pacemaker - [facility] Procedures ASSISTANCE WITH RESPIRATORY VENTILATION, 24-96 HRS, CPAP (10/27/17) ASSISTANCE WITH RESPIRATORY VENTILATION, <24 HRS, CPAP (11/16/17) CLOSED ENDOSCOPIC BIOPSY OF LARGE INTESTINE (02/25/07) DPT ADMINISTRATION (11/13/13) ENDO EXCISION/DEST OF LESION OR TISSUE OF STOMACH (02/01/14) ENDOSC POLYPECTOMY OF LG INTEST (02/01/14) ESOPHAGOGASTRODUODENOSCOPY [EGD] W/CLOSED BIOPSY (10/11/14) INJECT/INFUSE NEC (02/28/15) INTRODUCE OF OTH THERAP SUBST INTO RESP TRACT, VIA OPENING (09/06/17) NEBULIZER THERAPY (08/11/13) Family History: States: No Known Family Hx - Social History Hx Tobacco Use: No Hx Alcohol Use: No Hx Substance Use: No - Immunization History Hx Tetanus Toxoid Vaccination: No Hx Influenza Vaccination: Yes Hx Pneumococcal Vaccination: (PT UNSURE) Review Of Systems Constitutional: Negative for: Fever ENT: Positive for: Nose Discharge Cardiovascular: Negative for: Chest Pain Respiratory: Positive for: Cough, Shortness of Breath Physical Exam - Physical Exam Appears: Well, Non-toxic, No Acute Distress Skin: Normal Color, Warm, Dry Head: Atraumatic, Normacephalic Eye(s): bilateral: Normal Inspection, EOMI Oral Mucosa: Moist Chest: Symmetrical Cardiovascular: Rhythm Regular, No Murmur Respiratory: Normal Breath Sounds, No Accessory Muscle Use, No Rales, No Rhonchi , No Wheezing, Other (active cough) Gastrointestinal/Abdominal: Soft, No Tenderness ED Course And Treatment - Laboratory Results Result Diagrams: 11/28/17 15:19 11/28/17 15:19 ECG: Interpreted By Me, Viewed By Me ECG Rhythm: Sinus Tachycardia, R BBB ECG Interpretation: No Changes From Prior (11/16) Rate From EC (bpm) O2 Sat by Pulse Oximetry: 98 (nasal cannula) Pulse Ox Interpretation: Normal Progress Note: Blood work, EKG, and CXR ordered. Disposition - Disposition Disposition: HOSPITALIZED - Scribe Statement The provider has reviewed the documentation as recorded by the Scribe Cinthia Moreno All medical record entries made by the Scribe were at my direction and personally dictated by me. I have reviewed the chart and agree that the record accurately reflects my personal performance of the history, physical exam, medical decision making, and the department course for this patient. I have also personally directed, reviewed, and agree with the discharge instructions and disposition.
[2017-11-28 15:25] LABS: BASO # 0.3 K/uL (0.0-0.2); BASO % 2.4 % (0.0-2.0); EOS # 0.5 K/uL (0.0-0.7); HEMOGLOBIN 13.1 g/dL (11.0-16.0); LYMPH # 2.7 K/uL (1.0-4.3); LYMPH % 21.7 % (20.0-40.0); MEAN CELL VOLUME 85.1 fL (81.0-99.0); MEAN CORPUSCULAR HGB CONC 32.9 g/dL (33.0-37.0); MEAN PLATELET VOLUME 7.1 fL (7.2-11.7); MONO % 7.5 % (0.0-10.0); NEUT # 8.2 K/uL (1.8-7.0); NEUT % 64.4 % (50.0-75.0); RBC 4.68 Mil/uL (3.80-5.20); WHITE BLOOD COUNT 12.7 K/uL (4.8-10.8)
[2017-11-28] MEDS ORDERED: MethylPREDNISolone 40 mg Vial IVP STA ×2 (15:44→15:45)
[2017-11-28] MEDS ORDERED: Albuterol-Ipratrop 3 mg / 0.5 (3 ml) UD INH STA (15:45)
[2017-11-28 15:47] LABS: ABG ALLEN TEST PO; ARTERIAL BLOOD GAS HCO3 29.1 mmol/L (21-28); ARTERIAL BLOOD GAS O2 SAT 96.7 % (95-98); ARTERIAL BLOOD GAS PCO2 48 mm/Hg (35-45); ARTERIAL BLOOD GAS PH 7.42 (7.35-7.45); ARTERIAL BLOOD GAS PO2 65 mm/Hg (80-100); ARTERIAL BLOOD GAS TCO2 32.6 mmol/L (22-28)
[2017-11-28] MEDS ORDERED: MethylPREDNISolone 40 mg Vial ONE (15:57)
[2017-11-28] MEDS ORDERED: Albuterol-Ipratrop 3 mg / 0.5 (3 ml) UD ONE (15:59)
--- NOTE | 2017-11-28 16:24 | RAD ---
PROCEDURE: CHEST RADIOGRAPH, 1 VIEW HISTORY: Shortness of breath COMPARISON: 11/16/2017. FINDINGS: LUNGS: There is no significant interval change in diffuse interstitial thickening. There is also airspace disease in the lungs worse in the left lower lobe. PLEURA: No pneumothorax or pleural fluid seen. CARDIOVASCULAR: Normal. OSSEOUS STRUCTURES: No significant abnormalities. VISUALIZED UPPER ABDOMEN: Normal. OTHER FINDINGS: None. IMPRESSION: Findings may represent multifocal pneumonia, worse in the left lower lobe superimposed on interstitial lung disease. Follow-up is recommended.
[2017-11-28 16:27] LABS: ALB/GLOB RATIO 0.9 (1.0-2.1); ALBUMIN 3.6 g/dL (3.5-5.0); ALT/SGPT 16 U/L (9-52); AST/SGOT 31 U/L (14-36); BLOOD UREA NITROGEN 8 mg/dL (7-17); CALCIUM 8.8 mg/dl (8.6-10.4); GFR AFRICAN-AMERICAN > 60; GFR NON-AFRICAN AMERICAN > 60
[2017-11-28 16:29] LABS: B-TYPE NATRIURETIC PEPTIDE 491 pg/mL (0-900)
[2017-11-28] MEDS: Albuterol-Ipratrop 3 mg / 0.5 (3 ml) UD INH SCH (20:01)
[2017-11-28] MEDS: MethylPREDNISolone 40 mg Vial IVP SCH (21:57)
[2017-11-29] MEDS: Promethazine 6.25 MG/5 ML CUP PO SCH ×4 (00:20→17:21)
[2017-11-29] MEDS: Albuterol-Ipratrop 3 mg / 0.5 (3 ml) UD INH SCH ×4 (01:07→19:17)
[2017-11-29] MEDS: MethylPREDNISolone 40 mg Vial IVP SCH ×2 (09:48→21:16)
[2017-11-29] MEDS ORDERED: Enoxaparin 40 mg Syringe SC SCH (10:00)
[2017-11-29] MEDS ORDERED: Azithromycin 500 MG in Sodium Chloride 0.9% 250 ML IVPB SCH (10:00)
[2017-11-29] MEDS ORDERED: RIBOFLAVIN 100 MG PO SCH (10:00)
[2017-11-29] MEDS ORDERED: Pantoprazole 20 mg EC Tab PO SCH (10:00)
--- NOTE | 2017-11-29 10:09 | PCM.RRT ---
TAPE WEAVER Nurses Assessment - Situation Date: 11/29/17 Time TAPE WEAVER was called: 09:10 TAPE WEAVER Responder Arrival Time:: 09:11 TAPE WEAVER Location:: Med/Surg Room Number: 664 B TAPE WEAVER Reason for Call: Respiratory Distress, O2 Saturation below 90% TAPE WEAVER Called By: RN - IV IV Inserted during TAPE WEAVER?: No - Respiratory TAPE WEAVER Delivery Method: High-Flow @% Oxygen Flow Rate: 20 Received Nebulizer Treatments: No Was the Patient Ventilated with Bag/Mask 100% O2?: No Secretions Suctioned?: No Was the Patient Intubated?: No Was the Patient Placed on a Ventilator?: No - Ventilator Settings FIO2 (% Oxygen): 50 - Medication Medications Administered During TAPE WEAVER: Fio2 increased to 60% in high flow - Diagnostic Test Ordered EKG: No Chest X-Ray: No CT Scan: No CPR started during TAPE WEAVER?: No - Vital Signs Vital Signs: Rapid Response Vital Sign Blood Pressure 174/106 Pulse Rate 126 Respiratory Rate 38 Temperature 97.9 F Oxygen Saturation 70 - Time TAPE WEAVER Ended Time TAPE WEAVER Ended: 09:16 - Vital Signs at end of TAPE WEAVER Vital Signs at end of TAPE WEAVER: Rapid Response End Vital Sign Blood Pressure 109/64 Pulse Rate 112 Respiratory Rate 34 Temperature 97.9 F O2 Sat by Pulse Oximetry 95 - Recommendations Notifications: Attending Physician - Respiratory Oxygen Delivery Method: High-Flow @% Oxygen Flow Rate: 20 - Constitutional Appears: No Acute Distress - Head Head Exam: ATRAUMATIC, NORMOCEPHALIC - Eyes Eye Exam: EOMI - Respiratory Exam Respiratory Exam: Decreased Breath Sounds. absent: Respiratory Distress - Cardiovascular Exam Cardiovascular Exam: +S1, +S2 - GI/Abdominal Exam GI & Abdominal Exam: Soft, Normal Bowel Sounds - Neurological Exam Neurological Exam: Alert, Awake Plan - Assessment of Findings&Treatment Plan Rapid response called for hypoxia, O2 saturation of 70%. Patient on high flow O2, FiO2 50%. Head of bed elevated and patient saturating 90% on 50% FiO2. Per primary, FiO2 can be titrated to 60% to maintain O2 saturation 88% or higher. Patient resting comfortably in bed.
--- NOTE | 2017-11-29 12:19 | CP.PCM.HP ---
History of Present Illness - History of Present Illness History of Present Illness: Chief Complaint: shortness of breath Ms. Sky is a 62 year old female with PMHx of Pulmonary Fibrosis requiring home oxygen, Breast Cancer s/p left mastectomy and radiation, and Asthma presents to the hospital with shortness of breath, desaturating as low as 70% at home. She admits to using her home oxygen at home all day but she monitors her home oxygen and noted it dropped very low when she was transferring from her bed to bedside commode. She admitting to nonproductive cough with rhinorrhea, with no associated fever or chills. Patient is currently on lung transplant list at [facility]. 12 point ROS unremarkable unless noted above. PMHx: Pulmonary Fibrosis requiring home oxygen, Breast Cancer s/p left mastectomy and radiation, and Asthma PSHx: , hip replacement, left mastectomy 1985, status post radiation All: NKDA SHx: Denied tobacco, ETOH or illicit drug use. Formerly employed in [employer] industry and exposed to secondhand smoke. FHx: Father had a history of bone cancer. Mother with a lung cancer and emphysema. Present on Admission - Present on Admission Any Indicators Present on Admission: No Past Patient History - Infectious Disease Hx of Infectious Diseases: None - Tetanus Immunizations Tetanus Immunization: Unknown - Past Medical History & Family History Past Medical History?: Yes - Past Social History Smoking Status: Never Smoked - CARDIAC Hx Congestive Heart Failure: Yes Hx Pacemaker: No - PULMONARY Hx Asthma: Yes Hx Bronchitis: Yes Hx Chronic Obstructive Pulmonary Disease (COPD): Yes Hx Pneumonia: Yes - NEUROLOGICAL Hx Parkinson's Disease: No - HEENT Hx HEENT Problems: Yes Hx Cataracts: Yes - RENAL Hx Chronic Kidney Disease: No - ENDOCRINE/METABOLIC Hx Endocrine Disorders: No - HEMATOLOGICAL/ONCOLOGICAL Hx Blood Disorders: Yes Hx Blood Transfusions: Yes Hx Blood Transfusion Reaction: No Hx Cancer: Yes (breast) - INTEGUMENTARY Hx Dermatological Problems: No - MUSCULOSKELETAL/RHEUMATOLOGICAL Hx Falls: No - GASTROINTESTINAL Hx Gall Bladder Disease: Yes (choleycstectomy) - GENITOURINARY/GYNECOLOGICAL Hx Genitourinary Disorders: No - PSYCHIATRIC Hx Depression: Yes Hx Substance Use: No - SURGICAL HISTORY Hx Appendectomy: Yes Hx Cholecystectomy: Yes - ANESTHESIA Hx Anesthesia: Yes Hx Anesthesia Reactions: No Hx Malignant Hyperthermia: No Has any member of the family had a problem w/ anesthesia?: No Meds Allergies/Adverse Reactions: Allergies Allergy/AdvReac Type Severity Reaction Status Date / Time No Known Allergies Allergy Verified 11/16/17 21:36 Physical Exam - Constitutional Appears: Chronically Ill - Head Exam Head Exam: NORMAL INSPECTION, NORMOCEPHALIC - Eye Exam Eye Exam: EOMI, Normal appearance, PERRL Pupil Exam: NORMAL ACCOMODATION - ENT Exam ENT Exam: Mucous Membranes Moist - Respiratory Exam Respiratory Exam: Decreased Breath Sounds - Cardiovascular Exam Cardiovascular Exam: Tachycardia - GI/Abdominal Exam GI & Abdominal Exam: Normal Bowel Sounds, Soft. absent: Distended, Organomegaly , Tenderness - Rectal Exam Rectal Exam: Deferred - Extremities Exam Extremities exam: Positive for: normal inspection, pedal pulses present. Negative for: pedal edema, tenderness - Back Exam Back exam: NORMAL INSPECTION - Neurological Exam Neurological exam: Alert, CN II-XII Intact, Oriented x3 - Psychiatric Exam Psychiatric exam: Normal Affect, Normal Mood - Skin Skin Exam: Dry, Intact, Normal Color, Warm Results - Vital Signs Recent Vital Signs: Last Vital Signs Temp 98.1 F 11/29/17 07:40 Pulse 112 H 11/29/17 08:00 Resp 18 11/29/17 07:40 BP 142/75 11/29/17 07:40 Pulse Ox 89 L 11/29/17 07:40 - Labs Result Diagrams: 11/28/17 15:19 11/28/17 15:19 Labs: Laboratory Results - last 24 hr 11/28/17 11/28/17 11/28/17 15:19 15:19 15:43 WBC 12.7 H RBC 4.68 Hgb 13.1 Hct 39.8 MCV 85.1 MCH 28.0 MCHC 32.9 L RDW 16.0 H Plt Count 304 MPV 7.1 L Neut % (Auto) 64.4 Lymph % (Auto) 21.7 [place] % (Auto) 7.5 Eos % (Auto) 4.0 Baso % (Auto) 2.4 H Neut # (Auto) 8.2 H Lymph # (Auto) 2.7 [place] # (Auto) 1.0 H Eos # (Auto) 0.5 Baso # (Auto) 0.3 H Puncture Site Rr pCO2 48 H pO2 65 L HCO3 29.1 H ABG pH 7.42 ABG Total CO2 32.6 H ABG O2 Saturation 96.7 ABG Base Excess 5.5 H Watson Test Po ABG Potassium 3.5 L A-a O2 Difference 160.0 Respiratory Index 2.5 Glucose 140 H Lactate 1.9 Liter Flow 5.0 FiO2 40.0 Sodium 141 140.0 Potassium 3.9 Chloride 100 105.0 Carbon Dioxide 31 H Anion Gap 14 BUN 8 Creatinine 0.5 L Est GFR ( Amer) > 60 Est GFR (Non-Af Amer) > 60 Random Glucose 134 H Calcium 8.8 Total Bilirubin 0.4 AST 31 ALT 16 Alkaline Phosphatase 69 Troponin I 0.0360 NT-Pro-B Natriuret Pep 491 Total Protein 7.5 Albumin 3.6 Globulin 3.9 Albumin/Globulin Ratio 0.9 L Arterial Blood Potassium 3.5 L Assessment & Plan - Assessment and Plan (Free Text) Assessment: Ms. Sky is a 62 year old female with PMHx of Pulmonary Fibrosis requiring home oxygen, Breast Cancer s/p left mastectomy and radiation, and Asthma presents to the hospital with hypoxia despite home oxygen. Currently on lung transplant list at [facility]. Plan: Chronic Restrictive Lung Disease Pulmonary Fibrosis Tachypnic, Hypoxic Oxygen Dependant On lung transplant list at [facility] S/P Lung biopsy 11/01/17 - negative for malignancy Patient will need cardiac clearance Meds: Duonebs Azithromycin Solumedrol 40mg Q12 Phenergan Syrup Hx Breast Cancer [place] Prophylactic Measures GI PPX: Protonix 20mg PO daily DVT PPX: Lovenox 40mg SC daily DW Dr. Mclaughlin, Elyssa Andersen DO, PGY-1
[2017-11-29] MEDS: CREON PO SCH ×2 (14:52→17:22)
[2017-11-29] MEDS: PIRFENIDONE 267 MG PO SCH ×3 (14:53→17:22)
[2017-11-29 16:46] VITALS: BP 107/71; RESP 20; TEMP 98.5; O2SAT 95
[2017-11-29 19:35] VITALS: PULSE 110
--- NOTE | 2017-11-29 23:29 | CARD ---
APPROVED REPORT EKG Measurement Heart [id number] CT [id number] <Conclusion> Sinus tachycardia Right bundle branch block Left anterior fascicular block Bifascicular block Inferior infarct, age undetermined Abnormal ECG
[2017-11-30] MEDS ORDERED: Multivitamin Vitamin B Complex (Nephro-Vite) Tab PO SCH (10:00)
== END 2017-11-29 23:50 | disposition short-term general hospital (02) | DRG 197 ==
LOC: C.ER 14:30 → C.9E 15:46 → C.6T 16:14
PROVIDERS: ADMIT Internal Medicine; ATTEND Internal Medicine
DX: J84.10 Pulmonary fibrosis, unspecified (principal); J44.1 Chronic obstructive pulmonary disease with (acute) exacerbation; Z76.82 Awaiting organ transplant status; Z99.81 Dependence on supplemental oxygen; R09.02 Hypoxemia; I50.9 Heart failure, unspecified; M81.0 Age-related osteoporosis without current pathological fracture; Z96.649 Presence of unspecified artificial hip joint; F32.9 Major depressive disorder, single episode, unspecified; Z77.22 Contact with and (suspected) exposure to environmental tobacco smoke (acute) (chronic); Z85.3 Personal history of malignant neoplasm of breast; Z87.01 Personal history of pneumonia (recurrent); Z90.12 Acquired absence of left breast and nipple; Z90.49 Acquired absence of other specified parts of digestive tract; Z92.3 Personal history of irradiation